=== PATIENT | female | born 1945 | race Caucasian/White ===

== ENCOUNTER 2016-07-27 18:17 | Emergency (ER) | payer MEDICARE, BC ==
[2016-07-27 18:56] VITALS: BP 175/91
--- NOTE | 2016-07-27 19:39 | UC ---
Skin Complaint HPI - HPI Summary HPI Summary: The patient comes in today for: 1. Bruise lesion: Onset: Yesterday. Palliative/provocative: Worse with pressure. Quality: Itching and an ache. Region: Behind the right knee and calf. Severity: 3/10 with no touch. With touching 8/10 Time: Constant. Associated symptoms: Event: Last night, she felt like something had bitten her behind the right knee. When she got home, she notice what looked like a bruise. It got worse during today while she was up. * - History of Current Complaint Chief Complaint: UCSkin Time Seen by Provider: 07/27/16 19:30 Stated Complaint: ITCHINESS AND BRUISING ON LEG Hx Obtained From: Patient - Allergy/Home Medications Allergies/Adverse Reactions: Allergies Allergy/AdvReac Type Severity Reaction Status Date / Time Iodinated Contrast Media Allergy Unknown Hives Verified 07/05/15 16:14 [IV CONTRAST DYE] Erythromycin Allergy GI Upset Verified 07/05/15 16:14 Iodine Allergy Hives Verified 07/05/15 16:14 Latex Allergy REDNESS, Verified 07/05/15 16:14 IRRITATION Metoclopramide [From Reglan] Allergy Anxiety Verified 07/05/15 16:14 Morphine Allergy Nausea Verified 07/05/15 16:14 Opioid Analgesics Allergy Nausea And Verified 07/05/15 16:14 Vomiting Penicillins [PCN] Allergy Hives Verified 07/05/15 16:14 Sulfacetamide Allergy Hives Verified 07/05/15 16:14 Sulfamethoxazole Allergy Nausea Verified 07/05/15 16:14 w/Trimethoprim [From Bactrim] Tramadol Allergy unk Verified 07/05/15 16:14 BANDAID Allergy REDNESS, Uncoded 07/05/15 16:14 LATEX Home Medications: Home Medications Atorvastatin* [Lipitor 40 MG*] 07/27/16 [History] Review of Systems Constitutional: Negative Skin: Rash Eyes: Negative ENT: Negative Respiratory: Negative Cardiovascular: Negative Gastrointestinal: Negative Genitourinary: Negative All Other Systems Reviewed And Are Negative: Yes PMH/Surg Hx/FS Hx/Imm Hx Previously Healthy: No - Reflex sympathetic dystrophy, constipation Endocrine History Of: Reports: Thyroid Disease - Hyperparathyroidism, Hyperthyroidism, Dyslipidemia Denies: Diabetes, Hypothyroidism Cardiovascular History Of: Reports: Hypertension - CONTROL WITH MEDS Denies: Pacemaker/ICD, Congestive Heart Failure Respiratory History Of: Reports: COPD, Asthma - INHALERS, Bronchitis - HX OF Denies: Pneumonia, Pulmonary Embolism GI/ History Of: Reports: Gastroesophageal Reflux Denies: Ulcer, Gastrointestinal Bleed, Gall Bladder Disease, Kidney Stones, Diverticulitis, Renal Disease, Urosepsis Neurological History Of: Denies: TIA, CVA, Dementia, Seizures, Migraine Psychological History Of: Reports: Anxiety, Depression Denies: Bipolar Disorder, Schizophrenia, Post Traumatic Stress Disorder Cancer History Of: Denies: Lung Cancer, Colorectal Cancer, Breast Cancer, Prostate Cancer, Cervical Cancer Other History Of: Negative For: HIV, Hepatitis B, Hepatitis C, Anticoagulant Therapy - Surgical History Surgical History: Yes Surgery Procedure, Year, and Place: 1995 RIGHT CARPAL TUNNEL, ULNAR NERVE SURGERY, [facility]. 1997 PARATHYROIDECTOMY, [place]. 1989 SINUS SURGERIES, [place]. 2010 LEFT FOOT SURGERY TO REMOVE MOLE ON SECOND TOE, [facility] - Family History Known Family History: Positive: Cardiac Disease, Hypertension - Social History Occupation: Unemployed Alcohol Use: None Substance Use Type: None Smoking Status (MU): Former Smoker Type: Cigarettes Amount Used/How Often: 1/2 pack/day Length of Time of Smoking/Using Tobacco: 21 years Have You Smoked in the Last Year: No When Did the Patient Quit Smoking/Using Tobacco: 04/07/90 - Immunization History Most Recent Influenza Vaccination: 2011 Most Recent Tetanus Shot: 2010 Physical Exam Triage Information Reviewed: Yes Appearance: Well-Appearing, No Pain Distress, Well-Nourished Vital Signs: Initial Vital Signs Temp 100.2 F 07/27/16 18:45 Pulse 87 07/27/16 18:45 Resp 18 07/27/16 18:45 BP 175/91 07/27/16 18:45 Pulse Ox 97 07/27/16 18:45 Vital Signs Reviewed: Yes Eyes: Positive: Conjunctiva Clear. Negative: Discharge ENT: Positive: Hearing grossly normal. Negative: Pharyngeal erythema, Nasal congestion, Nasal drainage, TM bulging, TM dull, TM red, Tonsillar swelling, Tonsillar exudate Dental: Negative: Gross Decay/Caries @, Dental Fracture @ Neck: Positive: Supple, Nontender, No Lymphadenopathy. Negative: Nuchal Rigidity Respiratory: Positive: Chest non-tender, Lungs clear, No respiratory distress, No accessory muscle use. Negative: Crackles, Wheezing Cardiovascular: Positive: RRR, No Murmur Abdomen Description: Positive: Nontender, No Organomegaly, Soft. Negative: Distended, Guarding Musculoskeletal: Positive: Strength Intact, ROM Intact, No Edema, Other: - Right leg: There was a firm area and then ecchymosis of the right calf skin. There was no marked tenderness, skin edema or edema. There were superficial varicose veins of both legs. None were ropy, but still easily seen and palpated. No superficial thrombophlebitis. Neurological: Positive: Alert, Muscle Tone Normal Psychological: Negative: Age Appropriate Behavior, Consolable Skin: Negative: rashes, breakdown Course/Dx - Course Course Of Treatment: Patient was told that I think she had a spontaneous rupture of one of her superficial varicose veins. And her enlarging bruise area is consistent with its natural progresss. - Diagnoses Provider Diagnoses: Superficial varicose veins with spontaneous rupture of behind the right calf. Discharge - Discharge Plan Condition: Stable Disposition: HOME Patient Education Materials: Varicose Veins (ED) Referrals: Noah Maldonado MD [Primary Care Provider] - 1 Week (Please see your primary care provider next week to see how well you are doing. If you don't have a primary care provider, please contact the physician referral service. If you can't get in timely, please you may come back to see us until you can. If you get worse, please be seen sooner by us or the ER.) Additional Instructions: Please keep the right leg elevated, apply cold compresses for 20 minutes at a time for 4-5 times a day for the first two days. Thereafter use warm compresses for 20 minutes 4-5 times a day as needed for comfort and to speed healing. Take [id number] pain medications as needed for pain control. Keep elevated as much as you can.
== END 2016-07-27 20:20 | disposition home or self-care (01) ==
LOC: UCEAST 18:17
DX: I83.891 Varicose veins of right lower extremity with other complications (principal); E21.3 Hyperparathyroidism, unspecified; E78.5 Hyperlipidemia, unspecified; J44.9 Chronic obstructive pulmonary disease, unspecified; K21.9 Gastro-esophageal reflux disease without esophagitis; F41.9 Anxiety disorder, unspecified; F32.9 Major depressive disorder, single episode, unspecified; E05.90 Thyrotoxicosis, unspecified without thyrotoxic crisis or storm; Z88.0 Allergy status to penicillin; Z88.2 Allergy status to sulfonamides; Z88.3 Allergy status to other anti-infective agents; Z91.040 Latex allergy status; Z88.5 Allergy status to narcotic agent; Z91.041 Radiographic dye allergy status; Z87.891 Personal history of nicotine dependence
CPT/HCPCS: 99212; G0463

== ENCOUNTER 2016-10-10 10:02 | Day surgery (SDC) | payer MEDICARE, BC ==
[~2016-10-10 10:02] MED LIST: Dexamethasone IV* 4 MG/ML 1 ML (4 MG) IV SLOW PU ONE; Famotidine IV* 10 MG/ML 2 ML (20 mg) IV ONE
[2016-10-10] MEDS ORDERED: Buffered Lidocaine 0.9% SYRIN* 5 ML/SYR SYRINGE ONE (10:14)
[2016-10-10] MEDS ORDERED: Dexamethasone IV* 4 MG/ML 1 ML (4 MG) ONE (10:14)
[2016-10-10] MEDS ORDERED: Clindamycin 900 MG IVPREMIX(* 900 MG/50 ML SDV IV ONE (10:14)
[2016-10-10] MEDS ORDERED: Famotidine IV* 10 MG/ML 2 ML (20 mg) ONE ×2 (10:14→10:15)
[2016-10-10] MEDS: Buffered Lidocaine 0.9% SYRIN* 5 ML/SYR SYRINGE INTRADERM ONE ×2 (10:21→11:13)
[2016-10-10] MEDS ORDERED: Midazolam* 1 MG/ML 5 ML VIAL (5 MG) ONE (11:57)
[2016-10-10] MEDS ORDERED: fentaNYL* 50 MCG/ML 2 ML VIAL (100 MCG VIAL) ONE (11:57)
[2016-10-10] MEDS ORDERED: Lidocain 1% EPI 1:100,000 * 30 ML MDV ONE (12:20)
[2016-10-10] MEDS ORDERED: Bacitracin OINTMENT* 1 TUBE ONE (12:20)
[2016-10-10] MEDS ORDERED: Methylene Blue 0.5 %* 50 MG/10 ML AMP IV ONE (12:20)
[2016-10-10] MEDS ORDERED: Propofol* 10 MG/ML 20 ML BTL IV PUSH ONE (12:38)
[2016-10-10] MEDS ORDERED: Ondansetron INJ* 2 MG/ML VIAL ONE (12:38)
[2016-10-10 13:31] VITALS: BP 117/51
[2016-10-10] MEDS ORDERED: BSS OPTH.SOL* BTL ONE (15:00)
== END 2016-10-10 13:59 | disposition home or self-care (01) ==
LOC: OREAST 10:02
PROVIDERS: ATTEND Plastic Surgery
DX: L57.0 Actinic keratosis (principal); I10 Essential (primary) hypertension; G47.33 Obstructive sleep apnea (adult) (pediatric); J45.909 Unspecified asthma, uncomplicated
CPT/HCPCS: 88305; A9270-GY; J1100; J2250; J2405; J2704; J3010

== ENCOUNTER 2017-08-17 17:45 | Emergency (ER) | payer MEDICARE, BC ==
--- OUTSIDE RECORDS SUMMARY | 2017-08-17 17:51 | XMS REPORT ---
:1945 External Reference #:[id number] Author Organization [facility] Address [address] [place] [address] Phone [phone] Care Team Providers Name Role Phone Noah Maldonado M.D. Care Team Information Regional Economist Unavailable Noah Maldonado M.D. Primary Care Physician Unavailable Payers Type Date Identification Numbers Payment Provider Subscriber Medicare Primary Policy Number: [id number] [place] [employer] Kat Couch [facility] PayID: [id number] [address] [place] [address] Medigap Part B Effective: Policy Number: Awais Hammer 2010 [id number] [facility] Expires: 2016 Group Number: [id number] [address] [address] PayID: [id number] [place] [address] Medigap Part B Policy Number: [id number] [facility] Lacie Couch [facility] PayID: [id number] [address] [address] [place] [address] Problems Date Description Provider Status Onset: 01/11/2009 Essential hypertension Tobi Rico MD Active Family History Date Family Member(s) Problem(s) Comments General Asthma General Cancer General Diabetes Social History Type Date Description Comments Occupation Retired Cigarette Use Former Cigarette Smoker Packs Daily 1 for 12 years Cigars Never Smoked Cigars Pipe Never Smoked A Pipe Smokeless Tobacco Never Used Smokeless Tobacco ETOH Use Denies alcohol use Smoking Patient is a former smoker Allergies, Adverse Reactions, Alerts Date Description Reaction Status Severity Comments 02/29/2004 Penicillin active 02/29/2004 Sulfa active 01/11/2009 Contrast Dye hives active 01/11/2009 Bactrim active 01/11/2009 Erythromycin active 01/11/2009 Morphine active 02/21/2011 Opioid Analgesics active 02/21/2011 Tramadol active 02/21/2011 Iodine active 12/04/2012 Reglan active 07/22/2017 Doxy active Medications Medication Date Status Form Strength Qnty SIG Indications Ordering Provider Omeprazole 07/[address] 20mg 30cap 1 tab by Tobi s mouth 30 min Jeet Rico, before dinner Amlodipine Active 5mg 1 po qd Skezas, Noah Munguia Caltrate 600+D Active 1 po bid Skezas, Noah Munguia Gabapentin Active 800mg 1 po tid Skezsultana, Noah Munguia Tudorza Active 400mcg 1 puff bid Joel, Pressair Noah Munguia Dexilant Active Capsules DR 60mg take 1 Unknown capsule by mouth once daily Advair HFA Active Aerosol 230-21mcg Unknown / /Act Hyoscyamine Active Tablets ER 0.375mg Unknown Sulfate ER / 12HR Montelukast Active Tablets 10mg qd Skashleyas, Sodium Noah Munguia Valsartan Active Tablets 160mg 1 po qd Skezas, Noah Munguia Atorvastatin Active Tablets 40mg 1 po qd Chiquisas, Calcium Noah Munguia Ciclesonide Active 50mcg/Act 2 sprays per Skez nostril qd Noah Munguia Cyanocobalamin Active Solution 1000mcg 1 po qd Skezas, Noah Munguia Lubiprostone Active 24mcg 1 po bid Skezsultana, Noah Munguia Zoloft Active Tablets 50mg 1 by mouth Skezas, every day Noah Munguia Albuterol HFA Active Aerosol 90mcg/Act 2 puffs Skezas, every 2 to 4 Noah hours as M.DLuis Enrique needed for wheezing Albuterol Active Nebulizer (2.5mg/3M use in Skezas, Sulfate / L) 0.083% nebulizer Noah every 4 M.D. hours as needed for wheezing Amitiza Active Capsules 24mcg Unknown Azithromycin Active Tablets 500mg Take 1 Unknown Tablet By Mouth Three Times A Week Ipratropium Active Solution 0.03% Instill 2 Unknown Sprays Into Each Nostril Twice A Day Miralax Active Powder twice daily Unknown Cefdinir 03/23 Hx Capsules 300mg 28cap 1 by mouth Jay Segura /Diomedes s twice a day Ruperto carrillo M.D. 04/08 Levaquin 03/17 Hx Tablets 500mg 14tab 1 po qd 473.0 Jay Segura /2011 s Ruperto carrillo M.D. 04/08 Nasonex 02/24 Hx Suspension 50mcg/Act 1-2 sprays Jya Segura /2011 s intranasal Strominge - bid r MEugene 08/11 Saline Flush 01/28 Hx Solution 0.9% 3unit use with Jay Segura /2011 kendy bactroban Strominge - irrigations r M.DLuis Enrique 12/04 1000cc /2012 Bactroban 01/27 Hx Cream 2% 15gm mix 1/3 tube 473.2 Jay Segura in liter ns Strominge - irrigate Nilda carrillo 12/04 nostrils bid Mycelex 10/02 Hx Trouches 10mg 50uni 1 dissolve 112.0 Jay Wilson /2011 ts in mouth 5 Strominge - times a day r, M.DLuis Enrique 01/27 Nebulizer 10/02 Hx use as 112.0 Jay Segura /2011 directed Ruperto carrillo M.D. 08/12 Xopenex 10/02 Hx Nebulizer 1.25mg/3M 60uni use with 496 Jay Segura /2011 L ts nebulizer 3x Strominge - daily at 6-8 r, M.D. interval Bactroban 01/30 Hx Cream 2% 30gm mix 1/3 tube in liter ns Clemencia Connelly MD 02/21 nostrils twice a day with 50 ml Saline 10/26 Hx Solution 0.9% 3Lite mix with rs bactroban as Jeet Rico, - directed 12/04 Clotrimazole 02/22 Hx Gayle 10mg 50uni 1 by mouth 5 ts times a day Jeet Rico, - for 10 days 02/21 Meclizine HCL 05/17 Hx Tablets 25mg 30tab 1 po tid as Jay Segura s needed for Strominge - dizziness Nilda carrillo 02/21 Bactroban 05/16 Hx Cream 2% 3unit mix 04/09 tube 461.0 Jay Segura s in liter ns Strominge - irrigate Nilda carrillo 07/13 nostrils bid Saline Flush 05/16 Hx Solution 0.9% 3unit use with 461.0 Jay Segura s bactroban Lillyinge - irrigations Nilda carrillo 02/21 1000cc 15 gms Levaquin 05/16 Hx Tablets 500mg 14tab 1 po qd Jay Imelda s Ruperto - Nilda carrillo 07/13 Prednisone 04/14 Hx Tablets 10mg 10tab use as Jay Segura s directed Ruperto carrillo M.D. 07/13 Levaquin 04/10 Hx Tablets 750mg 7Days 1 po qd 461.0 Jay Stevie Lillyinge - Nilda carrillo 07/13 Prednisone 04/10 Hx Tablets 10mg 30tab 4 tabs po 461.0 Jay Segura s every day x4 Strominge - d, then 3 Nilda carrillo 07/13 tabs po every day x 4d, then 2 tab po daily x4d, then 1 tab po daily x4d Benadryl 04/10 Hx Capsules 25mg use as 461.0 Jay Segura directed on Strominge - the box can Nilda carrillo 07/13 take mg Aspirin Hx Unknown /0000 - 08/11 Astelin Hx Unknown /0000 - 02/21 Calcitonin 00 Hx Unknown /0000 - 07/13 Unit/Act Nasal Hx Unknown Solution /0000 - 07/13 Calcium 00/00 Hx Unknown Carbonate /08/11 Clonidine HCL 00/00 Hx Unknown /12/04 Clarinex 00/00 Hx Unknown /01/27 Nexium 00/00 Hx Unknown /08/12 Zetia 00/00 Hx Unknown /12/04 Mucinex 00/00 Hx Unknown /02/21 Nasonex 00/00 Hx Unknown /02/21 Singulair 00/00 Hx Unknown /08/11 Miralax 00/00 Hx 17Grams prn Skfinesse, / Noah - MEugene 07/22 Actonel 00/00 Hx Unknown 08/12 Nasal Saline 00/00 Hx Unknown /02/21 Advair HFA 00/00 Hx Unknown 230/ /08/11 Zocor 00/00 Hx Unknown /02/21 Diovan 00/00 Hx Unknown /08/11 Effexor 00/00 Hx Unknown /08/11 Ventolin HFA 00/00 Hx Unknown /08/11 Ipratropium 00/00 Hx Unknown [place] /02/21 Doxycycline 00/00 Hx Unknown 02/21 Calcitonin-Salm 00/00 Hx Solution 200Unit/A Unknown on 01/27 Guaifenesin 00/00 Hx Unknown /12/04 Hyoscyamine 00/00 Hx Tablets ER 0.375mg Unknown Sulfate /0000 - 07/22 Ipratropium 00/00 Hx Unknown [place] /10/02 Zocor 00/00 Hx Tablets 40mg Unknown /08/11 Spiriva 00/00 Hx Capsules 18mcg 30cap 1 cap Unknown Handihaler /0000 s inhaled qday - 12/04 Tobramycin 00/00 Hx Unknown Sulfate /12/04 Mycelex 00/00 Hx Unknown Trouches /08/11 Vitamin B12 00/00 Hx Unknown /08/11 Doxycycline 00/00 Hx Unknown /02/01 Albuterol HFA / Hx - 08/11 Clonidine HCL / Hx - 08/11 Atrovent Hx - 08/11 Amitiza Hx Capsules 24mcg - 08/11 Benzonatate Hx Capsules 100mg take 1 Unknown capsule by - mouth three 07/22 times a day if needed cough Moxifloxacin Hx Tablets 400mg take 1 Unknown HCL tablet by - mouth once 07/22 daily /2017 Sertraline HCL Hx Tablets 25mg - 07/22 Hycosamine Hx 0.375mg 1 po bid Joel Noah Khanna MEugene 07/22 Vital Signs Date Vital Result Comment 07/22/2017 Weight 175.00 lb Weight in kg's 79.380 Height 62.01 inches 5'2.01" Height in cm's 157.5 cm BMI (Body Mass Index) 32.0 kg/m2 08/12/2016 BP Systolic 170 mmHg BP Diastolic 94 mmHg Heart Rate 87 /min Respiratory Rate 17 /min Weight 150.00 lb Weight in kg's 68.040 Height 62.01 inches 5'2.01" Height in cm's 157.5 cm BMI (Body Mass Index) 27.4 kg/m2 01/25/2016 BP Systolic 118 mmHg BP Diastolic 61 mmHg Heart Rate 80 /min Respiratory Rate 17 /min Weight 151.00 lb Weight in kg's 68.494 Height 62.01 inches 5'2.01" Height in cm's 157.5 cm BMI (Body Mass Index) 27.6 kg/m2 02/01/2013 BP Systolic 141 mmHg BP Diastolic 77 mmHg Heart Rate 86 /min Respiratory Rate 17 /min Weight 215.00 lb Weight in kg's 97.524 Height 62.01 inches 5'2.01" Height in cm's 157.5 cm BMI (Body Mass Index) 39.3 kg/m2 12/04/2012 BP Systolic 143 mmHg BP Diastolic 75 mmHg Heart Rate 86 /min Respiratory Rate 16 /min Weight 215.00 lb Weight in kg's 97.524 Height 62.01 inches 5'2.01" Height in cm's 157.5 cm BMI (Body Mass Index) 39.3 kg/m2 01/28/2012 BP Systolic 119 mmHg BP Diastolic 80 mmHg Heart Rate 83 /min Respiratory Rate 16 /min Weight 215.00 lb Weight in kg's 97.524 Height 62.01 inches 5'2" Height in cm's 157.5 cm BMI (Body Mass Index) 39.3 kg/m2 10/28/2011 BP Systolic 109 mmHg BP Diastolic 67 mmHg Heart Rate 90 /min Respiratory Rate 16 /min Weight 209.00 lb Weight in kg's 94.802 Height 63 inches 5'3" Height in cm's 160.0 cm BMI (Body Mass Index) 37.0 kg/m2 02/21/2011 BP Systolic 143 mmHg BP Diastolic 77 mmHg Heart Rate 84 /min Respiratory Rate 16 /min Weight 208.00 lb Weight in kg's 94.349 Height 63 inches 5'3" Height in cm's 160.0 cm BMI (Body Mass Index) 36.8 kg/m2 01/24/2011 BP Systolic 146 mmHg BP Diastolic 79 mmHg Heart Rate 83 /min Respiratory Rate 16 /min Weight 208.00 lb Weight in kg's 94.349 Height 63 inches 5'3" Height in cm's 160.0 cm BMI (Body Mass Index) 36.8 kg/m2 01/11/2009 BP Systolic 150 mmHg BP Diastolic 89 mmHg Heart Rate 95 /min Respiratory Rate 16 /min Results Test Date Test Result H/L Range Note Laboratory test 03/17/2012 Culture Sensitivity <pending> finding Wound Culture/Sensi 03/17/2012 Wound/Misc (SEE NOTE) 1 Culture-Gram Stain Culture And 01/24/2011 Gram Stain Smear FEW EPITHELIAL C 2 Sensitivity/ Gram <SEE NOTE> Stain Laboratory test 01/24/2011 Culture NG4 3 finding Sensitivity Laboratory test 05/16/2009 Anaerobic Culture NOANA4 4, 5 finding Culture Sensitivity BETA STREP GROUP <SEE NOTE> 4, 6 CS-1 05/16/2009 Ampicillin <=0.06 4 Azithromycin >2 4 Chloramphenicol 4 4 Ceftriaxone <=0.25 4 Clindamycin <=0.06 4 Cefotaxime <=0.25 4 Cefepime <=0.25 4 Erythromycin >0.5 4 Levofloxacin 0.5 4 Penicillin <=0.03 4 Tetracylcline >4 4 Vancomycin 0.5 4 Laboratory test 04/10/2009 Culture Sensitivity HAEMOPHILUS INFL 7, 8 finding <SEE NOTE> 1 RUN DATE: 03/23/12 [facility] LIVE PAGE 1 RUN TIME: [address] [place] [address] Specimen Inquiry Name: KAT COUCH : [address]: Tiffanie Albarran NP Acct: [id number] Unit: [id number] AGE: 66 Location: [facility] Re03/17/12 SEX: F Status: REG REF SPEC: [id number] ANY: 03/17/12-[address] [facility] [address]: Tiffanie Albarran NP REQ: [id number] RECD: 03/18/12 STATUS: COMP _ SOURCE: MISC SOURC SPDESC:OTHER ORDERED: Culture Stain COMMENTS: SPECIMEN SOURCE: LEFT MIDDLE MEATUS QUERIES: Medent Number [id number] Procedure Result Verified Site Wound/Misc Gram Stain Final 03/18/12- 1546 ML No Polys Observed No Organisms Seen Wound/Misc Culture Final 03/23/12- 1434 ML Organism 1 STREPTOCOCCUS PARASANGUINIS Quantity 1+ Organism 2 STAPHYLOCOCCUS EPIDERMIDIS Quantity 1+ 1. STREPTOCOCCUS PARASANGUINIS M.I.C. RX --------- ------ * Chloramphenicol 4 S Ampicillin 2 I Penicillin I * Meropenem 0.5 S Cefepime 1 S Cefotaxime 1 S Ceftriaxone 1 S Levofloxacin >4 R Azithromycin >2 R Clindamycin <=0.06 S Erythromycin >0.5 R Tetracycline 4 I Vancomycin 0.5 S CONTINUED ON NEXT PAGE * ML=Testing performed at Main Lab DEPARTMENT OF PATHOLOGY, [facility] [employer] [place], [place] [address] Jeff Nugent M.D. Director [facility] Permit #[id number] RUN DATE: 03/23/12 [facility] LIVE PAGE 2 RUN TIME: 9470 [facility] [employer] [place], [place] [address] Specimen Inquiry Patient: KAT COUCH [id number] (Continued) Specimen: [id number] Collected: 03/17/12160 Received: 03/18/12 (Continued) Procedure Result Verified Site Wound/Misc Culture Final (continued) 03/23/12- 143 2. STAPHYLOCOCCUS EPIDERMIDIS M.I.C. RX --------- ------ Penicillin >=0.5 R Ciprofloxacin 4 R Clindamycin >=8 R Erythromycin >=8 R Gentamicin <=0.5 S Levofloxacin 4 I Linezolid 1 S * Moxifloxacin 1 S Nitrofurantoin <=16 S Oxacillin >=4 R * Quinupristin/Dalfopristin <=0.25 S Rifampin <=0.5 S Tetracycline <=1 S Doxycycline - Deduced S * Minocycline - Deduced S Tigecycline <=0.12 S Vancomycin 2 S Imipenem-Deduced R Ampicillin/Sulbactam-Deduced R Cefazolin-Deduced R * These antibiotics are not available in the [facility] Formulary Contact the Microbiology Department for any additional antibiotic reporting. END OF REPORT * ML=Testing performed at Main Lab DEPARTMENT OF PATHOLOGY, [address] [place] [address] Jeff Nugent M.D. Director [facility] Permit #[id number] 2 FEW EPITHELIAL CELLS NO ORGANISMS SEEN FEW 3 FINAL: NO GROWTH DAY 4 4 RIGHT MIDDLE MEATUS PUS POCKET IN RIGHT MIDDLE MEATUS 5 FINAL: NO GROWTH OF ANAEROBES DAY 4 6 BETA STREP GROUP C M^MANY^QTY 7 RIGHT MAXILLARY SINUS 8 HAEMOPHILUS INFLUENZAE F^FEW^QTY NORMAL ABDELRAHMAN F^FEW^QTY Procedures Date CPT Code Description Status 07/22/2017 79304 Nasal Endoscopy, Diagnostic Completed 02/01/2013 23054 Tympanometry Completed 12/04/2012 90825 Nasal Endoscopy, Diagnostic Completed 03/17/2012 82017 Nasal Endoscopy, Diagnostic Completed 01/28/2012 54030 Nasal Endoscopy, Diagnostic Completed 01/24/2011 06913 Nasal Endoscopy, Diagnostic Completed 08/09/2009 78513 Tympanometry Completed 06/08/2009 64901 Nasal Endoscopy, Diagnostic Completed 05/16/2009 65639 Tympanometry Completed 05/16/2009 22636 Comprehensive Audiogram Completed 05/16/2009 63663 Nasal Endoscopy, Diagnostic Completed 05/01/2009 98472 Tympanometry Completed 05/01/2009 17505 Nasal Endoscopy, Diagnostic Completed 04/10/2009 62630 Nasal Endoscopy, Diagnostic Completed 01/11/2009 93836 Nasal Endoscopy, Diagnostic Completed 02/29/2004 84700 Fiberoptic Laryngoscopy Completed Encounters Type Date Location Provider CPT E/M Dx Office Visit 07/22/2017 10:45a [place],[facility] 04/07/07 [place] [address] R05 R07.0 J32.9 Office Visit 08/12/2016 1:45p [place],After 04/07/07 Jay Boyle, 34169 H92.02 Nilda M26.602 Office Visit 01/25/2016 2:15p [place],After 04/07/07 [place] [address] K11.20 H92.02 Office Visit 02/01/2013 11:30a [place],After 04/07/07 Uluyen Tiffanie [employer]IE[employer] 42068 381.81 Office Visit 12/04/2012 10:00a [place],After 04/07/07 [place] [address] 477.8 784.0 472.0 386.11 Office Visit 04/08/2012 9:30a [place],After 04/07/07 Uluyen Tiffanie [employer]IE[employer] 15888 477.8 380.4 Office Visit 03/17/2012 3:00p [place],After 04/07/07 Ulich, Tiffanie DESIGN [employer] CHIEF 09019 473.0 784.91 Office Visit 02/18/2012 10:30a [place],After 04/07/07 Uldrich, Tiffanie DES[employer] CHIEF 74630 473.0 477.8 Office Visit 01/28/2012 9:30a [place],After 04/07/07 Uldrich, Tiffanie DES[employer] CHIEF 25199 784.0 473.2 Office Visit 10/28/2011 10:45a [place],After 04/07/07 Uldrich, Tiffanie [employer] CHIEF 75439 112.0 496 Office Visit 10/03/2011 1:45p [place],After 04/07/07 Uldrich, Tiffanie DESIGN D[employer]TER CHIEF 82502 112.0 496 380.4 Office Visit 02/21/2011 9:30a [place],After 04/07/07 [place] [address] 784.91 477.8 Office Visit 01/24/2011 11:30a [place],After 04/07/07 [place] [address] 473.0 Office Visit 02/22/2010 2:15p [place],After 04/07/07 [place] [address] 472.0 527.7 401.9 Office Visit 08/09/2009 9:45a [place],After 04/07/07 [place] [address] 401.9 381.81 477.8 Office Visit 07/13/2009 9:00a [place],After 04/07/07 [place] [address] 472.0 473.2 473.0 401.9 Office Visit 06/21/2009 10:45a [place],After 04/07/07 [place] [address] 466.0 401.9 Office Visit 05/16/2009 2:00p [place],After 04/07/07 Tiffanie Albarran [employer]IEF 45000 461.0 386.11 Office Visit 05/01/2009 3:00p [place],After 04/07/07 Tiffanie Albarran [employer] 48042 381.81 461.0 471.8 401.9 Office Visit 04/10/2009 10:00a [place],After 04/07/07 Tiffanie Albarran [employer]IEF 15386 461.0 471.8 401.9 Office Visit 02/08/2009 10:15a [place],After 04/07/07 [place] [address] 472.0 401.9 477.8 210.4 Office Visit 01/11/2009 9:30a [place],After 04/07/07 [place] [address] 472.0 477.8 401.9 Office Visit 02/29/2004 4:15p [place],After 04/07/07 Jay Boyle, 72744 530.81 M.D. 478.75 Plan of Care 07/22/2017 - Tobi Rico, MDR05 CoughNew Xrays:Chest X-ray PA & FzlcgntI58.0 Pain in fgbpgkO43.9 Chronic sinusitis, unspecified
[2017-08-17 17:59] VITALS: BP 140/77
--- NOTE | 2017-08-17 18:20 | UC ---
Laceration HPI - HPI Summary HPI Summary: States she lacerated skin of left calf while opening car door about 90 min ago. States last tetanus shot in 2010 - History Of Current Complaint Chief Complaint: UCLaceration Stated Complaint: LACERATION L LEG Time Seen by Provider: 08/17/17 17:57 Hx Obtained From: Patient Hx Last Menstrual Period: post Laceration Location: Calf Mechanism Of Injury: Sharp Trauma Onset/Duration: Sudden Onset, Lasting Hours Severity: Moderate Pain Intensity: 4 Aggravating Factors: Nothing - Allergies/Home Medications Allergies/Adverse Reactions: Allergies Allergy/AdvReac Type Severity Reaction Status Date / Time doxycycline Allergy Intermediate Nausea Verified 08/17/17 18:09 erythromycin base Allergy Intermediate GI Upset Verified 08/17/17 18:09 iodine Allergy Intermediate Hives Verified 08/17/17 18:09 latex Allergy Intermediate redness Verified 08/17/17 18:09 metoclopramide [From Reglan] Allergy Intermediate Anxiety Verified 08/17/17 18: 09 Opioids - Morphine Analogues Allergy Intermediate n/v Verified 08/17/17 18:09 Sulfa (Sulfonamide Allergy Intermediate Hives Verified 08/17/17 18:09 Antibiotics) morphine Allergy Nausea Verified 08/17/17 18:09 Penicillins Allergy Hives Verified 08/17/17 18:09 tramadol Allergy Nausea Verified 08/17/17 18:09 contrast dye Allergy Intermediate Hives Uncoded 08/17/17 18:09 BANDAID Allergy REDNESS, Uncoded 08/17/17 18:09 LATEX Home Medications: Home Medications Rabisacodyl Ec 10 mg PO BEDTIME 08/17/17 [History Confirmed 08/17/17] PMH/Surg Hx/FS Hx/Imm Hx Previously Healthy: Yes Endocrine History: Hypothyroidism Respiratory History: Asthma GI/ History: Gastroesophageal Reflux Psychological History: Depression Other History Of: Negative For: HIV, Hepatitis B, Hepatitis C, Anticoagulant Therapy - Surgical History Surgical History: Yes Surgery Procedure, Year, and Place: 1995 RIGHT CARPAL TUNNEL, ULNAR NERVE SURGERY, [facility]. 1997 PARATHYROIDECTOMY, [facility]. 1989 SINUS SURGERIES, [facility]. 2010 LEFT FOOT SURGERY TO REMOVE MOLE ON SECOND TOE, [facility]. bilateral cataract extraction with IOL - 2012 [facility] [place] - Family History Known Family History: Positive: Cardiac Disease, Hypertension - Social History Alcohol Use: None Substance Use Type: None Smoking Status (MU): Former Smoker Type: Cigarettes Amount Used/How Often: 1/2 pack/day Length of Time of Smoking/Using Tobacco: 21 years Have You Smoked in the Last Year: No When Did the Patient Quit Smoking/Using Tobacco: 04/07/90 - Immunization History Most Recent Influenza Vaccination: 2011 Most Recent Tetanus Shot: 2010 Review of Systems Constitutional: Negative All Other Systems Reviewed And Are Negative: Yes Physical Exam Triage Information Reviewed: Yes Appearance: Well-Appearing, No Pain Distress, Well-Nourished Vital Signs: Initial Vital Signs Temp 99.3 F 08/17/17 17:51 Pulse 94 08/17/17 17:51 Resp 16 08/17/17 17:51 BP 140/77 08/17/17 17:51 Pulse Ox 99 08/17/17 17:51 Vital Signs Reviewed: Yes Eyes: Positive: Conjunctiva Clear ENT: Positive: Hearing grossly normal Neck: Positive: Supple Respiratory: Positive: No respiratory distress Cardiovascular: Positive: Pulses Normal, Brisk Capillary Refill Musculoskeletal: Positive: Strength Intact, ROM Intact, No Edema Skin Exam: Other - superficial "V" shaped laceration of skin anterior mid left calf pointing medially with scant bleeding and diffuse bruising surrounding it. Laceration Repair - Laceration Repair 1 Description: Linear Laceration Size After Repair: Length (cm) - "v" shaped, 1.7cm inferior side x 2 cm superior side Modified For Repair: No Type Injection: Local Anesthesia Used: 1.0% Lido Cleansing Completed Via Routine Prep: Yes Irrigation With Pressure Irrigation Device: No Closure Material: Sutures Closure Method: Single Layer Suture Of: Skin Suture Type: Prolene Laceration Course/Dx - Course/Dx Course Of Treatment: Laceration repaired with sutures. Patient tolerated procedure well. Return for wound inspection and suture removal in 7 days. Tylenol as needed. F/u with PCP in 2 weeks - Differential Dx - Laceration/Wound Provider Diagnoses: Laceration left calf. HTN Discharge - Sign-Out/Discharge Documenting (check all that apply): Discharge/Admit/Transfer - Discharge Plan Condition: Good Disposition: HOME Patient Education Materials: Laceration (ED), Care For Your Stitches (ED) Referrals: Noah Maldonado MD [Primary Care Provider] - - Billing Disposition and Condition Condition: GOOD Disposition: HOME Images Front/Back of Body, Lg ([place]): 1 - "V" shaped laceration 1.5cm in length on each side
[2017-08-17] MEDS ORDERED: Lidocaine 2% PF * 5 ML VIAL INJ ONE (18:24)
== END 2017-08-17 19:10 | disposition home or self-care (01) ==
LOC: UCEAST 17:45
DX: S81.812A Laceration without foreign body, left lower leg, initial encounter (principal); W22.8XXA Striking against or struck by other objects, initial encounter; Y93.89 Activity, other specified; Y92.9 Unspecified place or not applicable; I10 Essential (primary) hypertension; E03.9 Hypothyroidism, unspecified; J45.909 Unspecified asthma, uncomplicated; K21.9 Gastro-esophageal reflux disease without esophagitis; F32.9 Major depressive disorder, single episode, unspecified; Z88.1 Allergy status to other antibiotic agents; Z91.041 Radiographic dye allergy status; Z91.040 Latex allergy status; Z88.5 Allergy status to narcotic agent; Z88.0 Allergy status to penicillin; Z88.2 Allergy status to sulfonamides; Z91.048 Other nonmedicinal substance allergy status; Z87.891 Personal history of nicotine dependence
CPT/HCPCS: 12001; 99212; G0463

== ENCOUNTER 2017-08-25 13:50 | Emergency (ER) | payer MEDICARE, BC ==
[2017-08-25 13:59] VITALS: BP 144/71
--- OUTSIDE RECORDS SUMMARY | 2017-08-25 13:59 | XMS REPORT ---
:1945 External Reference #:[id number] Author Organization [facility] [employer] Address [address] [place] [address] Phone [phone] Care Team Providers Name Role Phone Noah Maldonado M.D. Primary Care Physician Unavailable Payers Type Date Identification Numbers Payment Provider Subscriber Medicare Primary Effective: Policy Number: Medicare - NGS Kat Bunn 2001 [id number] Vinh PayID: [id number] [address] [place] [address] Medigap Part B Policy Number: [id number] BS [place] Jackie Sloanard PayID: [id number] [address] [address] [place] [address] Problems Date Description Provider Status Onset: Rosacea Active Onset: Seasonal allergy Active Onset: Asthma Active Onset: Irritable bowel syndrome Active Onset: Hypothyroidism Active Onset: Essential hypertension Active Onset: Reflex sympathetic dystrophy of lower Active extremity Onset: Depressive disorder Active Onset: Pure hypercholesterolemia Active Onset: 06/25/2016 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 Active Family History Date Family Member(s) Problem(s) Comments Father No Current Problems Mother Cataract Social History Type Date Description Comments Marital Status Legal Status: Occupation Homemaker ETOH Use Never used alcohol Smoking Patient is a former smoker Quit 2000 Daily Caffeine Consumes on average 3 cups of regular coffee per day Allergies, Adverse Reactions, Alerts Date Description Reaction Status Severity Comments 08/15/2014 Penicillins active hives 08/15/2014 Sulfa Antibiotics active hives 08/15/2014 Bactrim active GI upset 08/15/2014 Tramadol active GI upset 08/15/2014 Morphine active GI upset 08/15/2014 Iodine active Hives 08/15/2014 Codeine active GI upset 08/15/2014 Erythromycin active GI upset 08/15/2014 Iodinated Diagnostic Agents active hives 08/15/2014 Reglan active GI upset Medications Medication Date Status Form Strength Qnty SIG Indications Ordering Provider Systane Ultra 08/14/ Active Solution 0.4-0.3% 1 drop Tosin [place] 2014 both Isaiah, eyes O.D. three times a day Omnaris / Active Suspension 50mcg/Act Unknown 0000 Clonidine HCL / Active Patches 0.1mg/24HR Unknown 0000 Weekly Advair HFA / Active Aerosol 230-21mcg/ Unknown 0000 Act Ventolin HFA / Active Aerosol 108(90Base Unknown 0000 ) mcg/Act Caltrate 600+D / Active Chewtabs 600-400mg- Unknown 0000 Unit Cyanocobalamin / Active Solution 1000mcg/ML Unknown 0000 Diovan / Active Tablets 160mg Unknown 0000 Gabapentin / Active Tablets 800mg 3 x Unknown 0000 daily Hyoscyamine / Active Tablets ER 0.375mg twice Unknown Sulfate ER 0000 12HR daily Singulair / Active Tablets 10mg Unknown 0000 Tudorza Pressair / Active Aerosol 400mcg/Act Unknown 0000 Zoloft / Active Tablets 25mg Unknown 0000 Amitiza / Active Capsules 24mcg 1 cap Unknown 0000 twice daily Atorvastatin / Active Tablets 40mg Unknown Calcium 0000 Dexilant / Active Capsules DR 60mg Unknown 0000 Levofloxacin / Active Tablets 750mg Unknown 0000 Lidopatch Pain / Active Patches 3.99-1.25% as Unknown Relief 0000 needed Miralax / Active Powder 3350NF Unknown 0000 Lipitor / Active Tablets 40mg Unknown 0000 Amlodipine 00/ Active Tablets 5mg take 1 Unknown Besylate 0000 tablet by mouth once daily Actonel / Hx Tablets 35mg Unknown 2015 Benzonatate / Hx Capsules 100mg Unknown 2015 Atrovent / Hx Solution 0.03% Unknown 2015 Nexium / Hx Capsules DR 40mg Unknown 2015 Results Description No Information Procedures Date CPT Code Description Status 06/25/2016 28563 Est Patient Intermediate Exam Completed 09/19/2015 29166 Est Patient Comprehensive Exam Completed 06/27/2014 17096 Est Patient Intermediate Exam Completed 06/10/2014 16731 Determination Of Refractive State Completed 06/10/2014 86541 Est Patient Comprehensive Exam Completed 03/08/2013 82387 Est Patient Intermediate Exam Completed 09/03/2012 39084 Est Patient Comprehensive Exam Completed 09/03/2012 523 Goggles Completed 07/20/2012 00315 Est Patient Comprehensive Exam Completed 05/18/2012 81850 Est Patient Intermediate Exam Completed 05/02/2011 13245 Est Patient Intermediate Exam Completed 01/22/2011 38656 Est Patient Intermediate Exam Completed 10/17/2010 00791 Extracapsular Cataract Extraction W/Intraocular Lens Completed 06/11/2010 07657 Est Patient Comprehensive Exam Completed 05/07/2010 66083 Est Patient Intermediate Exam Completed 01/10/2010 69550 Extracapsular Cataract Extraction W/Intraocular Lens Completed 12/29/2009 77025 Computerized Corneal Topography Completed 12/29/2009 17637 Scanning Laser W/Interp And Report Completed 12/29/2009 86467 Ophthalmic Biometry Completed 12/29/2009 57226 Ophthalmic Biometry Completed 06/09/2009 78241 Est Patient Intermediate Exam Completed 05/12/2009 11408 Determination Of Refractive State Completed 05/12/2009 22466 Est Patient Intermediate Exam Completed 05/11/2008 98154 Determination Of Refractive State Completed 05/11/2008 02602 Est Patient Comprehensive Exam Completed 05/11/2007 14017 Determination Of Refractive State Completed 05/11/2007 56539 Est Patient Intermediate Exam Completed 04/08/2006 97578 Est Patient Comprehensive Exam Completed 04/11/2005 09569 Determination Of Refractive State Completed 04/11/2005 04213 Est Patient Comprehensive Exam Completed 03/13/2004 84243 Scanning Laser W/Interp And Report Completed 03/13/2004 84888 Determination Of Refractive State Completed 03/13/2004 35300 Est Patient Comprehensive Exam Completed Encounters Type Date Location Provider CPT E/M Dx Office Visit 08/13/2016 Jay Mason MD, Tosin Colon O.D. 77299 H43.813 11:00a pc Z96.1 Office Visit 08/15/2014 2:30p Jay Mason MD, Tosin Colon O.D. 31558 379.21 pc Office Visit 05/27/2014 10:45a Jay Mason MD, Tosin Colon O.D. 89049 375.15 pc Office Visit 08/10/2012 12:10p Jay Mason MD, Dot Mcguire, 49072 695.3 pc O.DLuis Enrique 370.49 Office Visit 06/29/2012 12:10p Jay Mason MD, Dot Mcguire, 18631 373.00 pc O.D. Office Visit 10/12/2010 10:30a Jay Mason MD, Jay Mason M.D. 25436 366.16 pc Office Visit 05/14/2010 12:30p Jay Mason MD, Adelaida Reece O.D. 23845 077.99 pc Office Visit 03/27/2010 8:45a Jay Mason MD, Jay Mason M.D. 63941 695.3 pc 370.49 Office Visit 02/13/2010 9:30a Jay Mason MD, Jay Mason M.D. 39629 695.3 pc 370.49 Office Visit 12/29/2009 12:00p Jay Mason MD, Jay Mason M.D. 59627 366.16 pc Office Visit 12/13/2009 10:45a Jay Mason MD, Adelaida Reece O.D. 59955 pc Office Visit 08/23/2009 9:00a Jay Mason MD, Nicky Simpson.Wilner 38318 373.00 pc Office Visit 08/02/2009 9:15a Jay Mason MD, Nicky Simpson.Wilner 36414 373.00 pc Office Visit 07/26/2009 1:45p Jay Mason MD, Adelaida Reece O.DLuis Enrique 13645 372.05 pc Office Visit 07/11/2009 1:15p Jay Mason MD, Wlof Caban 55778 373.00 pc O.D. Office Visit 06/16/2009 11:15a Jay Mason MD, Adelaida Reece O.Wilner 31456 373.2 pc Office Visit 05/08/2006 2:20p Jay Mason MD, Dot Mcguire, 79416 379.21 pc O.D. Plan of Care 08/13/2016 - Tosin Colon O.D.H43.813 Vitreous degeneration, bilateralComments:You have Vitreous Floaters. If you have any changed in your floaters or flashing lights, please contact this office.Follow up:2 [id number] Presence of intraocular lensComments:The artificial lens implants in both eyes appear to be stable at this time.
[2017-08-25] MEDS ORDERED: Benzoin Compound STICK TOPICAL ONE (14:06)
[2017-08-25] MEDS ORDERED: Benzoin Compound STICK ONE (14:08)
--- NOTE | 2017-08-25 14:24 | UC ---
Shayy Dubon Emily, scribed for Trey Padilla MD on 08/25/17 at 1408 . HPI Wound/Suture Re-check - HPI Summary HPI Summary: In Room: This patient is a 72 year old F presenting to [facility] care with a chief complaint of suture removal needed following a laceration on 08/17/2017. The patient rates the pain 0/10 in severity. Symptoms aggravated by nothing. Symptoms alleviated by nothing. Patient reports pruritus. MD: Left calf laceration 7 days ago. BP 144/71, patient is on antihypertensive medications. Afebrile. Nurses: Pt had stitches placed last Friday and is here for them to be removed. Stitches are in lower leg. - History Of Current Complaint Chief Complaint: UCSkin Stated Complaint: STITCH REMOVAL Time Seen by Provider: 08/25/17 13:55 Hx Obtained From: Patient Hx Last Menstrual Period: post Onset/Duration: Sudden Onset, Lasting Days, Still Present Severity: Mild Pain Intensity: 0 Pain Scale Used: 0-10 Numeric - Allergies/Home Medications Allergies/Adverse Reactions: Allergies Allergy/AdvReac Type Severity Reaction Status Date / Time doxycycline Allergy Intermediate Nausea Verified 08/25/17 13:59 erythromycin base Allergy Intermediate GI Upset Verified 08/25/17 13:59 iodine Allergy Intermediate Hives Verified 08/25/17 13:59 latex Allergy Intermediate redness Verified 08/25/17 13:59 metoclopramide [From Reglan] Allergy Intermediate Anxiety Verified 08/25/17 13: 59 Opioids - Morphine Analogues Allergy Intermediate n/v Verified 08/25/17 13:59 Sulfa (Sulfonamide Allergy Intermediate Hives Verified 08/25/17 13:59 Antibiotics) morphine Allergy Nausea Verified 08/25/17 13:59 Penicillins Allergy Hives Verified 08/25/17 13:59 tramadol Allergy Nausea Verified 08/25/17 13:59 contrast dye Allergy Intermediate Hives Uncoded 08/17/17 18:09 BANDAID Allergy REDNESS, Uncoded 08/17/17 18:09 LATEX PMH/Surg Hx/FS Hx/Imm Hx Previously Healthy: No Respiratory History: Asthma GI/ History: Gastroesophageal Reflux Other History Of: Negative For: HIV, Hepatitis B, Hepatitis C, Anticoagulant Therapy - Surgical History Surgical History: Yes Surgery Procedure, Year, and Place: 1995 RIGHT CARPAL TUNNEL, ULNAR NERVE SURGERY, [facility]. 1997 PARATHYROIDECTOMY, [facility]. 1989 SINUS SURGERIES, [facility]. 2010 LEFT FOOT SURGERY TO REMOVE MOLE ON SECOND TOE, [facility] [place]. bilateral cataract extraction with IOL - 2012 [facility] [place] - Family History Known Family History: Positive: Cardiac Disease, Hypertension - Social History Occupation: Retired Lives: With Family Alcohol Use: None Substance Use Type: None Smoking Status (MU): Former Smoker Type: Cigarettes Amount Used/How Often: 1/2 pack/day Length of Time of Smoking/Using Tobacco: 21 years Have You Smoked in the Last Year: No When Did the Patient Quit Smoking/Using Tobacco: 04/07/90 - Immunization History Most Recent Influenza Vaccination: 2011 Most Recent Tetanus Shot: 2010 Review of Systems Skin: Other - Positive laceration to L calf and pruritis Gastrointestinal: Other - Negative nausea, vomiting, and diarrhea All Other Systems Reviewed And Are Negative: Yes Physical Exam - Summary Physical Exam Summary: Appearance: The patient is well-appearing, is in no pain distress, and is well- nourished. Eyes: Conjunctiva are clear. ENT: The hearing is grossly normal, the pharynx is normal, and the TMs are normal. There is no muffled or hoarse voice. Neck: The neck is supple and there is no lymphadenopathy. Respiratory: The chest is nontender. The lungs are clear, there are normal breath sounds, and there is no respiratory distress. Cardiovascular: Heart is regular rate and rhythm. There is no murmur. Abdomen: The abdomen is soft and nontender. There is no organomegaly. Bowel sounds: present Musculoskeletal: Strength is intact. The patient moves all extremities. Neurological: The patient is alert. Psychological: The patient displays age appropriate behavior Skin: Negative for rashes. FOLLOW-UP ON 1 WEEK OLD LACERATION TO THE LEFT ANTERIOR TIBIA. ARROW SHAPED LACERATION, EACH ARM IS 2CM AND THERE ARE 7 SUTURES PLACED. THERE IS SOME MILD REACTIVE ERYTHEMA, BUT NO EVIDENCE OF INFECTION. Triage Information Reviewed: Yes Vital Signs: Initial Vital Signs Temp 98.3 F 08/25/17 13:57 Pulse 82 08/25/17 13:57 Resp 18 08/25/17 13:57 BP 144/71 08/25/17 13:57 Pulse Ox 97 08/25/17 13:57 Vital Signs Reviewed: Yes Course/Dx - Course Course Of Treatment: Pt with a well healed laceration in an area that is subject to trauma and that can be difficult to heal. The front of her left tibia , 7 stitches was removed and there was a slight less than 1 mm opening and bleeding at the end of one of the arms of the laceration. Benzoin and steristrips were used to support the healing laceration. Pt is moving and will use the lynne wrap for mechanical protection. Elevated BP of 144/71 but is currently on antihypertensives. This should be rechecked a few times in the next month. Pt has been informed of BP reading. Medications have been included in the original chart and reviewed. - Differential Dx - Laceration/Wound Provider Diagnoses: Suture removal, well healing laceration L tibia Discharge - Sign-Out/Discharge Documenting (check all that apply): Discharge/Admit/Transfer - Discharge Plan Condition: Stable Disposition: HOME Patient Education Materials: Steristrips (ED), Stitches Removal (ED) Referrals: Noah Maldonado MD [Primary Care Provider] - Additional Instructions: SEEK CARE AT THE EMERGENCY DEPARTMENT IF SYMPTOMS WORSEN OR IF NEW SYMPTOMS DEVELOP. FOLLOW UP WITH PRIMARY CARE PHYSICIAN. WE DISCUSSED: 1. Use lynne for protection over wound for the next 2 weeks when needed. 2. Your blood pressure with somewhat elevated today. Recheck it 3 times over the next month and see your doctor for this condition if it is above 120/80. 3. Re check at any time for signs of infection. - Billing Disposition and Condition Condition: STABLE Disposition: HOME The documentation as recorded by the Shayy tubbs Emily accurately reflects the service I personally performed and the decisions made by me, Trey Padilla MD.
== END 2017-08-25 14:35 | disposition home or self-care (01) ==
LOC: UCEAST 13:50
DX: S81.812D Laceration without foreign body, left lower leg, subsequent encounter (principal); R03.0 Elevated blood-pressure reading, without diagnosis of hypertension; Z88.1 Allergy status to other antibiotic agents; Z88.8 Allergy status to other drugs, medicaments and biological substances; Z88.5 Allergy status to narcotic agent; Z91.040 Latex allergy status; Z88.2 Allergy status to sulfonamides; Z88.0 Allergy status to penicillin; Z91.041 Radiographic dye allergy status; Z87.891 Personal history of nicotine dependence; X58.XXXD Exposure to other specified factors, subsequent encounter

== ENCOUNTER 2017-09-16 12:38 | Emergency (ER) | payer MEDICARE, BC ==
--- OUTSIDE RECORDS SUMMARY | 2017-09-16 12:49 | XMS REPORT ---
:1945 External Reference #:[id number] Author Organization [facility] Address [address] [place] [address] Phone [phone] Care Team Providers Name Role Phone Noah Maldonado M.D. Primary Care Physician Unavailable Payers Type Date Identification Numbers Payment Provider Subscriber Medicare Primary Effective: Policy Number: Medicare - NGS Kat Bunn 2001 [id number] Vinh PayID: [id number] [address] [place] [address] Medigap Part B Policy Number: [id number] BS [place] Jackie Justice PayID: [id number] [address] [address] [place] [address] Problems Date Description Provider Status Onset: Rosacea Active Onset: Seasonal allergy Active Onset: Asthma Active Onset: Irritable bowel syndrome Active Onset: Hypothyroidism Active Onset: Essential hypertension Active Onset: Reflex sympathetic dystrophy of lower Active extremity Onset: Depressive disorder Active Onset: Pure hypercholesterolemia Active Onset: 08/22/2017 Other secondary cataract, bilateral Tosin Colon O.D. Active Onset: 06/25/2016 Tear film insufficiency Tosin [...] 08/14/ Active Solution 0.4-0.3% 1 drop Tosin AyalaLuis Enrique 2014 both Isaiah, eyes O.D. three times [...] Pressair / Active Aerosol 400mcg/Act Unknown 0000 Amitiza / Active Capsules 24mcg 1 cap Unknown 0000 twice daily Dexilant / Active Capsules DR 60mg Unknown 0000 Lidopatch Pain / Active Patches 3.99-1.25% as Unknown Relief 0000 needed Miralax / Active Powder 3350NF Unknown 0000 Lipitor / Active Tablets 40mg Unknown 0000 Amlodipine / Active Tablets 5mg take 1 Unknown Besylate 0000 tablet by mouth once daily Valsartan 00/00/ Active Tablets 80mg Unknown 0000 Azithromycin 00/ Active Tablets 500mg Three Unknown 0000 Times A Week Actonel / Hx Tablets 35mg Unknown 2015 Benzonatate // Hx Capsules 100mg Unknown 2015 Atrovent / Hx Solution 0.03% Unknown 2015 Nexium / Hx Capsules DR 40mg Unknown 2015 Zoloft / Hx Tablets 25mg Unknown 2017 Atorvastatin /00/ Hx Tablets 40mg Unknown Calcium 2017 Levofloxacin / Hx Tablets 750mg Unknown 2017 Results Description No Information Procedures Date CPT Code Description Status 08/22/2017 99484 Est Patient Comprehensive Exam Completed 06/25/2016 94082 Est Patient Intermediate Exam Completed 09/19/2015 31321 Est Patient Comprehensive Exam Completed 06/27/2014 73723 Est Patient Intermediate Exam Completed 06/10/2014 31033 Determination Of Refractive State Completed 06/10/2014 25792 Est Patient Comprehensive Exam Completed 03/08/2013 22119 Est Patient Intermediate Exam Completed 09/03/2012 12832 Est Patient Comprehensive Exam Completed 09/03/2012 523 Goggles Completed 07/20/2012 08865 Est Patient Comprehensive Exam Completed 05/18/2012 92836 Est Patient Intermediate Exam Completed 05/02/2011 10705 Est Patient Intermediate Exam Completed 01/22/2011 71890 Est Patient Intermediate Exam Completed 10/17/2010 80117 Extracapsular Cataract Extraction W/Intraocular Lens Completed 06/11/2010 68321 Est Patient Comprehensive Exam Completed 05/07/2010 14625 Est Patient Intermediate Exam Completed 01/10/2010 51422 Extracapsular Cataract Extraction W/Intraocular Lens Completed 12/29/2009 47915 Computerized Corneal Topography Completed 12/29/2009 35231 Scanning Laser W/Interp And Report Completed 12/29/2009 76716 Ophthalmic Biometry Completed 12/29/2009 37429 Ophthalmic Biometry Completed 06/09/2009 73536 Est Patient Intermediate Exam Completed 05/12/2009 17532 Determination Of Refractive State Completed 05/12/2009 36759 Est Patient Intermediate Exam Completed 05/11/2008 09377 Determination Of Refractive State Completed 05/11/2008 10258 Est Patient Comprehensive Exam Completed 05/11/2007 38298 Determination Of Refractive State Completed 05/11/2007 74657 Est Patient Intermediate Exam Completed 04/08/2006 66534 Est Patient Comprehensive Exam Completed 04/11/2005 99178 Determination Of Refractive State Completed 04/11/2005 35635 Est Patient Comprehensive Exam Completed 03/13/2004 25695 Scanning Laser W/Interp And Report Completed 03/13/200445383 Determination Of Refractive State Completed 03/13/2004 74399 Est Patient Comprehensive Exam Completed Encounters Type Date Location Provider CPT E/M Dx Office Visit 08/13/2016 Jay Mason MD, Tosin Colno O.D. 98247 H43.813 11:00a pc Z96.1 Office Visit 08/15/2014 2:30p Jay Mason MD, Tosin Colon O.D. 31557 379.21 pc Office Visit 05/27/2014 10:45a Jay Mason MD, Tosin Colon O.D. 91401 375.15 pc Office Visit 08/10/2012 12:10p Jay Mason MD, Dot Mcguire, 23466 695.3 pc O.DLuis Enrique 370.49 Office Visit 06/29/2012 12:10p Jay Mason MD, Dot Mcguire, 84200 373.00 pc O.D. Office Visit 10/12/2010 10:30a Jay Mason MD, Jay Mason M.D. 54883 366.16 pc Office Visit 05/14/2010 12:30p Jay Mason MD, Adelaida Reece O.D. 07714 077.99 pc Office Visit 03/27/2010 8:45a Jay Mason MD, Jay Mason M.D. 44652 695.3 pc 370.49 Office Visit 02/13/2010 9:30a Jay Mason MD, Jay Mason M.D. 93460 695.3 pc 370.49 Office Visit 12/29/2009 12:00p Jay Mason MD, Jay Mason M.D. 30896 366.16 pc Office Visit 12/13/2009 10:45a Jay Mason MD, Nicky Simpson.Wilner 30794 pc Office Visit 08/23/2009 9:00a Jay Mason MD, Adelaida Reece O.DLuis Enrique 93988 373.00 pc Office Visit 08/02/2009 9:15a Jay Mason MD, Adelaida Reece O.DLuis Enrique 71326 373.00 pc Office Visit 07/26/2009 1:45p Jay Mason MD, Nicky Simpson.Wilner 92374 372.05 pc Office Visit 07/11/2009 1:15p Jay Mason MD, Wolf Caban 63499 373.00 pc O.D. Office Visit 06/16/2009 11:15a Jay Mason MD, Nicky Simpson.Wilner 63349 373.2 pc Office Visit 05/08/2006 2:20p Jay Mason MD, Dot Mcguire, 31994 379.21 pc O.D. Plan of Care Future Appointment(s):08/25/2018 9:15 am - Tosin Colon O.D. at Jay Mason MD, 08/22/2017 - Tosin Colon O.D.H04.123 Dry eye syndrome of bilateral lacrimal glandsComments:Both of your eyes appear to be dry. Use artificial tears as directed. You can use the tears more often if you are reading a book or are on the computer, as we tend to blink less, making our eyes dry out more.[facility] offers a few items in our optical department to help alleviate dry eye symptoms. try gel tears at night before bedFollow up:1-2 sddkzJ15.813 Vitreous degeneration, bilateralComments:Smoking can increase the risk of developing or worsening any eye related disease, as well as affect your overall health. If you are a smoker, we strongly recommend that you quit.If you are not a smoker, we strongly recommend that you do not start. You have a Posterior Vitreous Detachment. If you have any changes in your floaters or flashing lights, please contact this office.Z96.1 Presence of intraocular lensComments:Smoking can increase the risk of developing or worsening any eye related disease, as well as affect your overall health. If you are a smoker, we strongly recommend that you quit.If you are not a smoker, we strongly recommend that you do not start. The artificial lens implants in both eyes appear to be stable at this time.H26.493 Other secondary cataract, bilateralComments:Smoking can increase the risk of developing or worsening any eye related disease, as well as affect your overall health. If you are a smoker , we strongly recommend that you quit.If you are not a smoker, we strongly recommend that you do not start. There is clouding in the sac that holds your artificial lens. When your vision bothers you, Dr. Mason will do a laser treatment here in the office to improve your vision.
--- NOTE | 2017-09-16 14:09 | ED ---
Head Injury - HPI Summary HPI Summary: Patient presents status post head injury earlier today (around 11 AM). She reports she was in her kitchen while construction workers were working overhead and asked only dropped a board on her head. She reports she has numbness and pain along the right top portion of her skull and also has some right-sided neck pain. This does not radiate into her shoulder or arm and she denies loss of consciousness, photophobia, nausea, dizziness, numbness, tingling, weakness. She does not take any anticoagulant. She does have RSD most noticeable on the right side. She's not sure if this recent injury just flared this up. She takes gabapentin and follows with her PCP for this condition. - History Of Current Complaint Chief Complaint: EDHeadInjury Stated Complaint: HEAD INJURY Time Seen by Provider: 09/16/17 13:11 Hx Obtained From: Patient, Family/Ict Developer - sister Hx Last Menstrual Period: post Pain Intensity: 2 - Allergies/Home Medications Allergies/Adverse Reactions: Allergies Allergy/AdvReac Type Severity Reaction Status Date / Time doxycycline Allergy Intermediate Nausea Verified 09/16/17 12:43 erythromycin base Allergy Intermediate GI Upset Verified 09/16/17 12:43 iodine Allergy Intermediate Hives Verified 09/16/17 12:43 latex Allergy Intermediate redness Verified 09/16/17 12:43 metoclopramide [From Reglan] Allergy Intermediate Anxiety Verified 09/16/17 12: 43 Opioids - Morphine Analogues Allergy Intermediate n/v Verified 09/16/17 12:43 Sulfa (Sulfonamide Allergy Intermediate Hives Verified 09/16/17 12:43 Antibiotics) morphine Allergy Nausea Verified 09/16/17 12:43 Penicillins Allergy Hives Verified 09/16/17 12:43 tramadol Allergy Nausea Verified 09/16/17 12:43 contrast dye Allergy Intermediate Hives Uncoded 09/16/17 12:43 BANDAID Allergy REDNESS, Uncoded 09/16/17 12:43 LATEX Home Medications: Home Medications Albuterol 2.5MG/3ML (0.083%)* [Ventolin 2.5 MG/3 ML NEB.OKSANA*] 2.5 mg INH Q6H PRN 09/16/17 [History Confirmed 09/16/17] Bisacodyl EC TAB* [Dulcolax EC TAB*] 10 mg PO BEDTIME 09/16/17 [History Confirmed 09/16/17] Alfredito/D3/Mag11/Zinc/Puppet Engineer/Salomón/Bor [Caltrate 600+D Plus Tablet] 1 tab PO DAILY 09/16 [History Confirmed 09/16/17] Ipratropium [place] 2 spray NASAL BID 09/16/17 [History Confirmed 09/16/17] Magnesium Chloride EC TAB* [Slow Mag EC TAB*] 2 tab PO BEDTIME 09/16/17 [ History Confirmed 09/16/17] Montelukast Sodium TAB* [Singulair 10 MG TAB*] 10 mg PO DAILY 09/16/17 [History Confirmed 09/16/17] Simethicone TAB* [Mylicon TAB*] 125 mg PO ACHS PRN 09/16/17 [History Confirmed 09/16/17] PMH/Surg Hx/FS Hx/Imm Hx Previously Healthy: Yes Endocrine/Hematology History: Reports: Hx Thyroid Disease - parathyroidectomy - 1997 Denies: Hx Anticoagulant Therapy, Hx Diabetes Cardiovascular History: Reports: Hx Hypercholesterolemia Denies: Hx Congestive Heart Failure, Hx Hypertension - on meds, Hx Pacemaker/ ICD, Other Cardiovascular Problems/Disorders - hyperlipidemia Respiratory History: Reports: Hx Asthma - inhalers / DAILY MED, Hx Chronic Bronchitis, Hx Sleep Apnea - no longer uses CPAP, Other Respiratory Problems/ Disorders - COPD Denies: Hx Chronic Obstructive Pulmonary Disease (COPD), Hx Lung Cancer, Hx Pneumonia, Hx Pulmonary Embolism GI History: Reports: Hx Gastroesophageal Reflux Disease - on med, Hx Hiatal Hernia, Hx Irritable Bowel - on med, Other GI Disorders - reports constipation issues Denies: Hx Gall Bladder Disease, Hx Gastrointestinal Bleed, Hx Ulcer, Hx Urosepsis History: Denies: Hx Kidney Stones, Hx Renal Disease Musculoskeletal History: Reports: Hx Arthritis, Hx Tendonitis - LEFT KNEE, Other Musculoskeletal History - reports left knee torn meniscus Sensory History: Reports: Hx Cataracts - bilateral, Hx Contacts or Glasses - glasses Denies: Hx Deafness, Hx Hearing Aid Opthamlomology History: Reports: Hx Cataracts - bilateral, Hx Contacts or Glasses - glasses Neurological History: Reports: Other Neuro Impairments/Disorders - RSD Denies: Hx Dementia, Hx Migraine, Hx Seizures, Hx Transient Ischemic Attacks (TIA) Psychiatric History: Reports: Hx Anxiety - on med, Hx Depression - on med Denies: Hx Panic Disorder, Hx Schizophrenia, Hx Bipolar Disorder - Cancer History Hx Chemotherapy: No Hx Radiation Therapy: No - Surgical History Surgery Procedure, Year, and Place: 1995 RIGHT CARPAL TUNNEL, ULNAR [place]E [place] [facility] [place]ATH[place]ECTOMY, [facility]. 1989 SINUS SURGERIES, [facility]. 2010 LEFT FOOT SURGERY TO REMOVE MOLE ON SECOND TOE, [facility] [place]. bilateral cataract [place] with IOL [place] [facility] [place] Anesthesia Reactions: Yes - reports slow to wake up - Immunization History Date of Tetanus Vaccine: unknown per pt Infectious Disease History: No Infectious Disease History: Denies: Traveled Outside the [place] in Last 30 Days - Family History Known Family History: Positive: Cardiac Disease, Hypertension - Social History Occupation: Retired Lives: Alone Alcohol Use: None Hx Substance Use: No Substance Use Type: Reports: None Hx Tobacco Use: Yes - not currently Smoking Status (MU): Former Smoker Type: Cigarettes Amount Used/How Often: 1/2 pack/day Length of Time of Smoking/Using Tobacco: 21 years Have You Smoked in the Last Year: No Review of Systems Constitutional: Negative Negative: Fatigue Eyes: Negative Negative: Photophobia, Blurred Vision, Diplopia ENT: Negative Negative: Epistaxis, Dental Pain, Ear Ache Cardiovascular: Negative Respiratory: Negative Gastrointestinal: Negative Positive: no symptoms reported. Negative: incontinence Positive: Arthralgia. Negative: Myalgia, Decreased ROM Skin: Negative Positive: Headache. Negative: Weakness, Paresthesia, Numbness, Syncope, Slurred Speech Psychological: Normal All Other Systems Reviewed And Are Negative: Yes Physical Exam Triage Information Reviewed: Yes Vital Signs On Initial Exam: Initial Vitals Temp Pulse Resp BP Pulse Ox 99.9 F 87 16 161/76 97 09/16/17 12:41 09/16/17 12:41 09/16/17 12:41 09/16/17 12:41 09/16/17 12:41 Vital Signs Reviewed: Yes Appearance: Positive: Well-Appearing, Well-Nourished, Pain Distress - mild Skin: Positive: Warm, Skin Color Reflects Adequate Perfusion, Dry - no ecchymosis, no erythema, no lac/abrasion Head/Face: Positive: Other - no gross deformity but she is TTP over Rt parietal region Eyes: Positive: Normal, EOMI, GRADY - no photophobia, Conjunctiva Clear ENT: Positive: Normal ENT inspection, Hearing grossly normal, Pharynx normal, TMs normal - no hemotympanum. Negative: Trismus Dental: Negative: Dental Fracture @ Neck: Positive: Supple, Tenderness @ - Rt paracervical spine Respiratory/Lung Sounds: Positive: Breath Sounds Present Cardiovascular: Positive: Normal Abdomen Description: Positive: Nontender, Soft Musculoskeletal: Positive: Strength/ROM Intact Neurological: Positive: Normal, Sensory/Motor Intact, Alert, Oriented to Person Place, Time, CN Intact II-III, Reflexes Intact, Facial Symmetry, Speech Normal Psychiatric: Positive: Normal Diagnostics - Vital Signs Vital Signs Temp Pulse Resp BP Pulse Ox 09/16/17 12:41 99.9 F 87 16 161/76 97 - Laboratory Lab Statement: Any lab studies that have been ordered have been reviewed, and results considered in the medical decision making process. Head Injury Course/Dx Course Of Treatment: CT brain and cervical spine w/o acute findings. No s/sx of concussion other than MARTIN - advised rest for 48 hours and f/u w/ PCP. * Return to ED if danger s/sx present - Diagnoses Provider Diagnoses: Head injury, Cervical strain Discharge - Sign-Out/Discharge Documenting (check all that apply): Discharge/Admit/Transfer - Discharge Plan Condition: Stable Disposition: HOME Patient Education Materials: Head Injury (ED), Cervical Strain (ED) Referrals: Noah Maldonado MD [Primary Care Provider] - Additional Instructions: Rest from activity and technology for 48 hours - follow-up with PCP after this time for recheck of symptoms. Call today to schedule an appointment. In the meantime, you may ice your head in area of pain, take acetaminophen alternating with ibuprofen (take with food) *If you develop numbness, tingling, weakness, slurred speech, balance issues, change in vision, intractable vomiting, return to the ED - Billing Disposition and Condition Condition: STABLE Disposition: Home
--- NOTE | 2017-09-16 14:37 | RAD ---
indication: Right head and neck pain after a board "fell on to the vertex of her head today" COMPARISON: CT of the brain November 20, [address] scan of the brain and c-spine was performed without intravenous contrast enhancement. Contiguous axial sections were obtained from the lung apices through the vertex. BRAIN: The ventricles, cisterns and sulci are within normal limits. No significant focal abnormality or mass effect is seen. The jaffe-white differentiation is adequately maintained. There is no intracranial hemorrhage. No significant bony abnormality is present. The mastoid air cells are appropriately aerated. The visualized paranasal sinuses are clear. C-SPINE: On the sagittal plane images the vertebral bodies and facet joints are appropriately aligned. The normal cervical lordosis is maintained. There is no definite fracture or dislocation. Degenerative changes include loss of intervertebral disc height most severe at C5/C6 where there is sclerotic change of the articulating endplates and marginal osteophyte formation. There is no hyperdense material in the cervical canal to indicate hemorrhage. The visualized musculature and soft tissues are normal. There is no gross lymphadenopathy visualized. There is coarse calcification at the bilateral carotid bulbs. There appears to be surgical material along the right lateral margin of the thyroid. The visualized portion of the lung apices are clear. IMPRESSION: 1. No calvarial fracture or acute intracranial hemorrhage. 2. Degenerative changes of the cervical spine as described above without acute fracture or dislocation.
[2017-09-16] MEDS ORDERED: Acetaminophen TAB* 325 MG PO ONE (15:20)
[2017-09-16 15:50] VITALS: BP 162/80
== END 2017-09-16 15:45 | disposition home or self-care (01) ==
LOC: ED 12:38
DX: S09.90XA Unspecified injury of head, initial encounter (principal); S16.1XXA Strain of muscle, fascia and tendon at neck level, initial encounter; W20.8XXA Other cause of strike by thrown, projected or falling object, initial encounter; Y92.9 Unspecified place or not applicable; G90.50 Complex regional pain syndrome I, unspecified; I10 Essential (primary) hypertension; K21.9 Gastro-esophageal reflux disease without esophagitis; F41.8 Other specified anxiety disorders; Z91.041 Radiographic dye allergy status; Z79.899 Other long term (current) drug therapy; Z87.891 Personal history of nicotine dependence; Z88.3 Allergy status to other anti-infective agents; Z88.0 Allergy status to penicillin; Z88.5 Allergy status to narcotic agent; Z88.2 Allergy status to sulfonamides; Z88.8 Allergy status to other drugs, medicaments and biological substances
CPT/HCPCS: 70450; 72125; 99282

== ENCOUNTER → 2019-01-29 06:37 | Day surgery (SDC) | payer MEDICARE, BC ==
[~2019-01-29 06:37] MED LIST changes: +Acetaminophen TAB* 325 MG PO PRN; +Buffered Lidocaine 1% SYRIN* 1 ML/SYRINGE INTRADERM ONE; -Dexamethasone IV* 4 MG/ML 1 ML (4 MG) IV SLOW PU ONE; +Dexamethasone IV* 4 MG/ML 1 ML (4 MG) ONE; +EPHEDrine (Pressors)* 50 MG/ML VIAL ONE; -Famotidine IV* 10 MG/ML 2 ML (20 mg) IV ONE; +Lactated Ringers 1000 ML Bag* 1,000 ML IV SCH; +Lidocaine 1% w EPI 1:100,000* MDV 20 ML VIAL ONE; +Lidocaine 2% PF * 5 ML VIAL ONE; +Lidocaine 4% TOPICAL* 50 ML TOP.SOLN ONE; +Midazolam* 1 MG/ML 2 ML VIAL (2 MG) ONE; +Naloxone* 0.4 MG/ML 1 ML VIAL IV PRN; +Ondansetron INJ* 2 MG/ML VIAL ONE; +Oxymetazoline 0.05% NASAL SPR* 15 ML BTL ONE; +Propofol* 10 MG/ML 20 ML BTL ONE; +Succinylcholine* 20 MG/ML 10 ML VIAL ONE; +fentaNYL* 50 MCG/ML 2 ML VIAL (100 MCG VIAL) IV PRN; +fentaNYL* 50 MCG/ML 2 ML VIAL (100 MCG VIAL) ONE; +oxyCODONE TAB* 5 MG TAB PO PRN
[2019-01-29 11:02] VITALS: BP 148/78
--- NOTE | 2019-01-29 12:58 | OP ---
DATE OF OPERATION: 01/29/19 - [facility] DATE OF : 49 SURGEON: Tobi Rico MD DOBBY LOOMS PEGGER: None. ANESTHESIA: General. PRE-OP DIAGNOSIS: Right antrochoanal polyp. POST-OP DIAGNOSIS: Right antrochoanal polyp. OPERATIVE PROCEDURE: Right maxillary antrostomy with removal of antrochoanal polyp. ESTIMATED BLOOD LOSS: Less than 10 cc. SPECIMENS: Fragments of right antrochoanal polyp for permanent section. INDICATIONS: This is a 73-year-old woman who presented for right nasal airway obstruction. She has had a long-standing history of allergy and chronic sinus issues and did have a sinus surgery in the distant past. On exam in the office , it was noted that she had a large polyp coming out of the right maxillary sinus consistent with an antrochoanal polyp. The decision was made to bring the patient to the operating room for removal. DESCRIPTION OF PROCEDURE: On 01/29/19, the patient was brought to the operating room. General anesthesia was induced and an oral endotracheal tube was placed. The patient was then draped and a time-out was performed. The right nasal cavity was packed with pledgets soaked with Afrin and 4% lidocaine. Once adequate time had been allotted for vasoconstriction, approximately 1.5 cc of 1% lidocaine with 1:100,000 epinephrine was infiltrated into the root of the middle turbinate, the body of the middle turbinate and the lateral nasal wall. The procedure was begun by grasping the antrochoanal polyp at its point of origination through the maxillary sinus antrum. The bulk of the volume of the polyp came out in 2 large fragments. At this point, the edges of the prior maxillary antrostomy were widened on their anterior aspect to facilitate a little bit better exposure of the maxillary sinus cavity. The polyp appeared to be pedicled on the anterolateral wall of the maxillary sinus. The mucosa here was stripped utilizing a giraffe cup forceps and a 45-degree angled scope. Once all of the mucosa in the area had been stripped, the patient was returned to the care of the anesthesiologist. She was extubated and delivered to the PACU in stable condition. [id number]/[facility] #: [id number] [facility]OSPITALSo[facility]
== END | disposition home or self-care (01) ==
LOC: OR 06:37
PROVIDERS: ATTEND Otolaryngology
DX: J33.8 Other polyp of sinus (principal); I10 Essential (primary) hypertension; J44.9 Chronic obstructive pulmonary disease, unspecified; G47.33 Obstructive sleep apnea (adult) (pediatric); Z87.891 Personal history of nicotine dependence; K21.9 Gastro-esophageal reflux disease without esophagitis; K58.9 Irritable bowel syndrome, unspecified; G90.511 Complex regional pain syndrome I of right upper limb; F41.8 Other specified anxiety disorders; E78.00 Pure hypercholesterolemia, unspecified
CPT/HCPCS: 88305; A9270-GY; J0330; J1100; J2250; J2405; J2704; J3010

== ENCOUNTER 2019-02-01 12:28 | Emergency (ER) | payer MEDICARE, BC ==
--- OUTSIDE RECORDS SUMMARY | 2019-02-01 12:41 | XMS REPORT | Continuity of Care Document ---
:1945 External Reference #:[id number] Author Name Tobi Rico MD Address [address] [place] [address] Care Team Providers Name Role Phone Noah Maldonado M.D. - Internal Care Team Information Privacy Attorney [phone] Medicine Problems Active Problems Provider Date Essential hypertension Tobi Rico MD Onset: 01/11/2009 Social History Type Date Description Comments Sex Unknown Tobacco Use Start: Unknown End: Former Cigarette Smoker for 12 years Unknown Packs Daily 1 Tobacco Use Start: Unknown Never Smoked Cigars Tobacco Use Start: Unknown Never Smoked A Pipe Smoking Status Reviewed: 07/22/17 Never Smoked A Pipe Smokeless Tobacco Never Used Smokeless Tobacco ETOH Use Denies alcohol use Tobacco Use Start: Unknown End: Patient is a former smoker Unknown Allergies, Adverse Reactions, Alerts Active Allergies Reaction Severity Comments Date Penicillin 02/29/2004 Sulfa 02/29/2004 Contrast Dye hives 01/11/2009 Bactrim 01/11/2009 Erythromycin 01/11/2009 Morphine 01/11/2009 Opioid Analgesics 02/21/2011 Tramadol 02/21/2011 Iodine 02/21/2011 Reglan 12/04/2012 Doxy 07/22/2017 Medications Active Medications SIG Qnty Indications Ordering Date Provider Methylprednisolone take as directed 1pluke Marcano 12/31/2018 4mg SNOWK MD Jacky Amlodipine 1 po qd Noah Maldonado 5mg M.D. Caltrate 600+D 1 po bid Noah Maldonado M.D. Gabapentin 1 po tid Noah Maldonado 800mg M.D. Tudorza Pressair 1 puff bid Noah Maldonado 400mcg M.D. Dexilant take 1 capsule Unknown 60mg Capsules DR by mouth once daily Advair HFA Unknown 230-21mcg/Act Aerosol Hyoscyamine Sulfate ER Unknown 0.375mg Tablets ER 12HR Montelukast Sodium qd , 10mg Tablets M.D. Atorvastatin Calcium 1 po qd 40mg M.D. Tablets Zoloft 1 by mouth every [place], 50mg Tablets day M.D. Albuterol HFA 2 puffs every 2 ez, 90mcg/Act Aerosol to 4 hours as M.D. needed for wheezing Albuterol Sulfate use in nebulizer [facility] (2.5mg/3ML) every 4 hours as M.D. 0.083% Nebulizer needed for wheezing Amitiza Unknown 24mcg Capsules Azithromycin Take 1 Tablet By Unknown 500mg Tablets Mouth Three Times A Week Miralax twice daily Unknown Powder Immunizations Description No Information Available Vital Signs Date Vital Result Comment 12/31/2018 11:36am Weight 160.00 lb Weight 72.576 kg Height 62.01 inches 5'2.01" Height in cm's 157.5 cm BMI (Body Mass Index) 29.3 kg/m2 07/22/2017 10:50am Weight 175.00 lb Weight 79.380 kg Height 62.01 inches 5'2.01" Height in cm's 157.5 cm BMI (Body Mass Index) 32.0 kg/m2 Results Description No Information Available Procedures Date Code Description Status 12/31/2018 13436 Nasal Endoscopy, Diagnostic Completed Medical Devices Description No Information Available Encounters Description No Information Available Assessments Date Code Description Provider 12/31/2018 J33.8 Other polyp of sinus Tobi Rico MD Plan of Treatment Future Appointment(s):02/05/2019 10:00 am - Tobi Rico MD at [place], After 04/07/809 9:15 am - Tobi Rico MD at [facility] [place] O R012/31/2018 - Tobi Rico MDJ33.8 Other polyp of sinus Functional Status Description No Information Available Mental Status Description No Information Available Referrals Description No Information Available
--- OUTSIDE RECORDS SUMMARY | 2019-02-01 12:41 | XMS REPORT | Continuity of Care Document ---
:1945 External Reference #:[id number] Author Name Ana Rankin PA-C Address [address] [place] [address] Care Team Providers Name Role Phone Noah Maldonado M.D. - Internal Care Team Information Inspector Eyeglass [phone] Medicine Problems Active Problems Provider Date Essential hypertension Tobi Rico MD Onset: 01/11/2009 Social History Type Date Description Comments Sex Unknown Tobacco Use Start: Unknown End: Former Cigarette Smoker for 12 years Unknown Packs Daily 1 Tobacco Use Start: Unknown Never Smoked Cigars Tobacco Use Start: Unknown Never Smoked A Pipe Smoking Status Reviewed: 01/25/19 Never Smoked A Pipe Smokeless Tobacco Never [...] Ordering Date Provider Methylprednisolone take as directed 1pack J33.8 Tobi Marcano 01/26/2019 4mg TBPK MD Jacky Clindamycin HCL Take 1 Capsule Unknown 300mg Capsules By Mouth 3 Times A Day Miralax twice daily Unknown Powder Amitiza Unknown 24mcg Capsules Albuterol Sulfate use in nebulizer Noah Maldonado (2.5mg/3ML) every 4 hours as M.D. 0.083% Nebulizer needed for wheezing Albuterol HFA 2 puffs every 2 Skezas, Noah 90mcg/Act Aerosol to 4 hours as M.D. needed for wheezing Zoloft 1 by mouth every Skezas, Noah 50mg Tablets day M.D. Atorvastatin Calcium 1 po qd Skezas, Noah 40mg M.D. Tablets Montelukast Sodium qd ez, Noah 10mg Tablets M.D. Hyoscyamine Sulfate ER Unknown 0.375mg Tablets ER 12HR Advair HFA Unknown 230-21mcg/Act Aerosol Dexilant take 1 capsule Unknown 60mg Capsules DR by mouth once daily Tudorza Pressair 1 puff bid ez, Noah 400mcg M.D. Gabapentin 1 po tid Skezas, Noah 800mg M.D. Caltrate 600+D 1 po bid Skezas, Noah M.D. Amlodipine 1 po qd Skezas, 5mg M.D. History Medications Methylprednisolone take as directed 1[facility] Marcano 12/31/2018 - 4mg SHIRA Rico MD 01/25/2019 Immunizations Description No Information Available Vital Signs Date Vital Result Comment 01/26/2019 9:55am Weight 160.00 lb Weight 72.576 kg Height 62.01 inches 5'2.01" Height in cm's 157.5 cm BMI (Body Mass Index) 29.3 kg/m2 12/31/2018 11:36am Weight 160.00 lb Weight 72.576 kg Height 62.01 inches 5'2.01" Height in cm's 157.5 cm BMI (Body Mass Index) 29.3 kg/m2 Results Description No Information Available Procedures Date Code Description Status 01/26/2019 66193 Nasal Endoscopy, Diagnostic Completed 12/31/2018 23425 Nasal Endoscopy, Diagnostic Completed Medical Devices Description No Information Available Encounters Type Date Location Provider Dx Diagnosis Office Visit 01/26/2019 [place] Ana Rankin, J33.8 Other polyp of 10:00a 04/07/07 PA-C sinus Assessments Date Code Description Provider 01/26/2019 Garrett33.8 Other polyp of sinus Ana Rankin PA-C 12/31/2018 J33.8 Other polyp of sinus Tobi Rico MD Plan of Treatment Future Appointment(s):02/05/2019 10:00 am - Tobi Rico MD at [place], After 04/07/809 9:15 am - [place] [facility] [place] RODOLFO Meza-CJ33.8 Other polyp of sinusNew Medication:Methylprednisolone 4 mg - take as directed Functional Status Description No Information Available Mental Status Description No Information Available Referrals Description No Information Available
--- OUTSIDE RECORDS SUMMARY | 2019-02-01 12:41 | XMS REPORT | Summary of Care ---
:1945 Author Organization [facility] Address [address] [place] [address] Care Team Providers Name Role Phone Noah Maldonado MD Primary Care Provider Reason for Visit Reason Comments COPD Encounter Details Date Type Department Care Team Description 12/10/2018 Office Visit [place] [facility] Eduard Dixon, Chronic bronchitis, obstructive (HCC) (Primary Dx); [address] [facility] Chronic rhinitis ; [place] [address] [address] Chronic maxillary sinusitis [phone] [place] [address] Allergies Active Allergy Reactions Severity Noted Date Comments Bactrim GI Reaction 07/03/2006 NAUSEA Doxycycline GI Reaction 05/08/2017 Ct Dye 06/26/2004 OMNIPAQUE Erythromycin GI Reaction 04/30/2007 GI upset Iodine 04/30/2007 Morphine 04/30/2007 Opioid Analgesics Nausea and Vomiting 07/09/2004 Penicillins Hives 06/26/2004 Reglan Other 11/09/2012 [place] hot Sulfacetamide Sodium Hives 04/30/2007 Tramadol Unknown Reaction 04/30/2007 Ultram documented as of this encounter (statuses as of 12/10/2018) Medications Medication Sig Dispensed Refills Start End Date Status Date cyanocobalamin Take 1,000 mcg 0 Active (VITAMIN B-12) 1000 by mouth DAILY. MCG Oral Tab calcium 1 Tab TWO 60 Tab 0 Active carbonate-vitamin D TIMES DAILY 3 (CALTRATE 600+D) BEFORE MEALS. 600-400 MG-UNIT Oral Tab albuterol 3 mL by 90 Vial 5 Active (PROVENTIL, Inhalation-SVN 6 VENTOLIN) (2.5 route EVERY SIX MG/3ML) 0.083% HOURS NEEDED Inhalation Nebu (cough). Soln Simethicone 125 MG Take 1 Tab by 120 Tab 5 Active Oral Chew Tab mouth EVERY SIX 8 HOURS. Magnesium Take 2 Tabs by 60 Tab 11 Active Cl-Calcium mouth EVERY 8 Carbonate BEDTIME. (SLOW-MAG) 71.5-119 MG Oral Tab EC polyethylene glycol Take 17 g by 510 g Active (MIRALAX) Oral mouth DAILY. 8 Powder ADVAIR HFA 230-21 INHALE 2 PUFFS 1 Inhaler 11 Active MCG/ACT Inhalation TWICE A DAY 8 Aerosol albuterol HFA Take 2 Puffs by 2 Inhaler 3 Active (VENTOLIN HFA) 108 inhalation FOUR 8 (90 Base) MCG/ACT TIMES DAILY Inhalation Aero NEEDED (for Soln sob). Bisacodyl 5 MG Oral Take 2 Tabs by 180 Tab 3 Active Tab EC mouth EVERY 8 BEDTIME. Gabapentin 800 MG take 1 tablet 90 Tab 11 Active Oral Tab by mouth three 9 times a day AMITIZA 24 MCG Oral take 1 capsule 180 Cap 3 Active Cap by mouth twice 9 a day Azithromycin 500 MG take 1 tablet 12 Tab 5 Active Oral by mouth THREE 9 TabIndications: TIMES A WEEK Mucopurulent chronic bronchitis (HCC) loratadine Take 1 Tab by 90 Tab 3 Active (CLARITIN,ALAVERT) mouth DAILY. 9 10 MG Oral Tab amLodipine take 1 tablet 90 Tab 3 Active (NORVASC) 10 MG by mouth once 9 Oral Tab daily DEXILANT 60 MG Oral take 1 capsule 90 Cap 3 Active CAPSULE DELAYED by mouth once 9 RELEASE daily montelukast TAKE 1 TABLET 90 Tab 3 Active (SINGULAIR) 10 MG BY MOUTH ONCE 9 Oral Tab DAILY candesartan TAKE 1 TABLET 90 Tab 3 Active (ATACAND) 8 MG Oral BY MOUTH ONCE 9 Tab DAILY TUDORZA PRESSAIR INHALE 1 PUFF 1 Each 5 Active 400 MCG/ACT BY MOUTH TWICE 9 Inhalation AEROSOL A DAY POWDER, BREATH ACTIVATEDIndication s: Chronic bronchitis, obstructive (HCC) sertraline (ZOLOFT) Take 1 Tab by 0 Active 25 MG Oral mouth DAILY. 9 TabIndications: Depression, unspecified depression type atorvastatin TAKE 1 TABLET 90 Tab 3 Active (LIPITOR) 40 MG BY MOUTH ONCE 9 Oral DAILY TabIndications: Hyperlipidemia fluticasone [place] 2 Sprays 1 Bottle 6 Active (FLONASE) 50 in nose DAILY. 9 MCG/ACT Nasal Suspension Cefdinir (OMNICEF) Take 1 Cap by 20 Cap 2 12/11/19 Discontinued 300 MG Oral Cap mouth TWICE 9 19 (Therapy DAILY. Completed) documented as of this encounter (statuses as of 12/10/2018) Active Problems Problem Noted Date Adhesive capsulitis of left shoulder 07/03/2018 Solar purpura 02/25/2018 History of tobacco use 06/21/2017 Mucopurulent chronic bronchitis 06/04/2017 Essential tremor 06/04/2017 Tic disorder 06/04/2017 Contusion of right foot 06/04/2016 Right foot pain 04/11/2016 Osteoarthritis of right ankle and foot 04/11/2016 Lateral epicondylitis of right elbow 04/11/2016 Esophageal dysfunction 10/18/2015 COLD (chronic obstructive lung disease) 10/18/2015 Traumatic tear of medial meniscus of left knee 07/25/2015 Left knee pain 07/13/2015 Primary osteoarthritis of left knee 05/02/2015 Hand pain, right 03/13/2015 Nondisp fx of proximal phalanx of left ring finger with routine heal 2014 Pain of right hand 03/06/2015 Wrist pain, right 04/26/2013 Knee pain, left 02/17/2013 Overview: Medial meniscal tear on MRI 02/2013 Chronic cough 04/15/2012 Persistent asthma 06/07/2011 Chronic sinusitis 05/21/2011 Allergic rhinitis due to grass and ragweed pollens 04/09/2011 BMI 36.0-36.9,adult 09/17/2010 Overview: This patient's BMI has been calculated and is above average, and BMI management plan is completed. General patient education discussion including: obesity- related excess mortality, weight loss link to reduction of risk factors for cardiac and other diseases, importance of long- term maintenance treatment in weight loss and is managed by Garrett MALDONADO MD . Declines pattern and chain maker consultation. Complex regional pain syndrome 04/23/2010 Overview: Right upper extremity Lung nodule 11/22/2009 Overview: 3 mm on computed tomography scan 2009 and stable in 2010, with no further follow up needed. Essential hypertension, benign 04/03/2007 Pure hypercholesterolemia 04/03/2007 Irritable bowel syndrome 04/03/2007 Esophageal reflux 04/03/2007 Deviated nasal septum 06/17/2006 Chronic bronchitis, obstructive 07/26/2005 Primary hyperparathyroidism 06/22/2004 MARVIN (obstructive sleep apnea) Overview: Patient is on CPAP of 9 cm through [facility] documented as of this encounter (statuses as of 12/10/2018) Resolved Problems Problem Noted Date Resolved Date Essential hypertension 01/06/2015 01/25/2016 Chronic bronchitis 04/15/2012 06/04/2017 Asthma 08/03/2008 06/07/2011 Overview: Positive methacholine study 10/23/2005. PC20 9.99 Disorder of bone and cartilage, unspecified 04/03/2007 05/21/2011 Allergic rhinitis, cause unspecified 04/03/2007 06/14/2008 Chronic ethmoidal sinusitis 06/17/2006 05/21/2011 Hypertrophy of nasal turbinates 06/17/2006 05/21/2011 Cough 09/27/2005 09/28/2009 Chronic frontal sinusitis 09/12/2005 05/21/2011 Chronic maxillary sinusitis 09/12/2005 05/21/2011 Unspecified asthma(493.90) 07/19/2005 06/14/2008 Pulmonary collapse 07/10/2004 05/21/2011 Hyperparathyroidism, unspecified 06/13/2004 05/21/2011 documented as of this encounter (statuses as of 12/10/2018) Immunizations Name Administration Dates Next Due Depo Medrol (80mg) 03/18/2013 Euflexxa (2ml) 2015, 05/23/2015, 05/16/2015, 10/28/2013, 10/22/2013, 10/14/2013 Influenza (IM) Preservative Free 01/19/2013 Influenza (IM) W/Pres 01/03/2012 Influenza Vaccine High Dose 12/31/2017, 01/23/2017, 01/11/2016, 01/25/2015, 12/22/2013 Influenza Vaccine Whole 01/20/2009, 01/18/2008, 01/19/2007, 01/20/2006, 07/12/2005, 02/04/2005, 01/06/2004, 01/19/2003 Influenza Virus Vaccine Pres Free 6-35 01/05/2011, 01/08/2010 Months PNEUMOCOCCAL POLYSACCHARIDE VACCINE 12/13/2011 Pneumococcal Conjugate(13 Valent) 06/13/2014 TDAP Vaccine 08/14/2013, 08/28/2011 ZOSTER (ZOSTAVAX) VACCINE 03/05/2012 documented as of this encounter Social History Tobacco Use Types Packs/Day Years Used Date Former Smoker Cigarettes 0.5 15 Quit: 04/15/1991 Smokeless Tobacco: Never Used Alcohol Use Drinks/Week oz/Week Comments No 0 Standard drinks or equivalent 0.0 Sex Assigned at Date Recorded Not on file Job Start Date Occupation Industry Not on file Not on file Not on file Travel History Travel Start Travel End No recent travel history available. documented as of this encounter Last Filed Vital Signs Vital Sign Reading Time Taken Comments Blood Pressure 118/64 12/10/2018 10:06 AM EDT Pulse 74 12/10/2018 10:06 AM EDT Temperature - - Respiratory Rate 17 12/10/2018 10:06 AM EDT Oxygen Saturation 97% 12/10/2018 10:06 AM EDT on r/a at rest Inhaled Oxygen Concentration - - Weight 70.3 kg (155 lb) 12/10/2018 10:06 AM EDT Height 160 cm (5' 3") 12/10/2018 10:06 AM EDT Body Mass Index 27.46 12/10/2018 10:06 AM EDT documented in this encounter Progress Notes Eduard Dixon MD - 12/10/2018 10:15 AM EDT Name: Kat Justice : 1945 Date of Service: 12/10/2018 Referring Practioner: Noah Maldonado Primary Care Provider: Noah Maldonado History of Present Illness Kat Justice is a 73-y.o. female who presents for a reevaluation of her persistent cough. Since her last visit, the patient has had problem with recurrent sinusitis. She did have a CT of the sinuses at the end of November which showed significant disease in the right maxillary sinus especially as well as polyps on the left. It was read as postsurgical changes but the patient denies any surgeryon her sinuses. She is already on Singulair. Her eosinophil count is normal. As far as her breathing, presently, she is doing well. She is presently on a combination of Advair and Tudorza. She denies any wheezing. She is also on Zithromax 3 times a week. She feels that her condition has improved significantly since she has been on Zithromax. Allergies Allergen Reactions Bactrim GI Reaction NAUSEA Doxycycline GI Reaction Dye [Ct Dye] OMNIPAQUE Erythromycin GI Reaction GI upset Iodine Morphine Opioid Analgesics Nausea and Vomiting Penicillins Hives Reglan Other [place] hot Sulfa [Sulfacetamide Sodium] Hives Tramadol Unknown Reaction Ultram Social History Socioeconomic History Marital status: Spouse name: Not on file Number of children: Not on file Years of education: Not on file Highest education level: Not on file Occupational History Not on file Social Needs Financial resource strain: Not on file Food insecurity: Worry: Not on file Inability: Not on file Transportation needs: Medical: Not on file Non-medical: Not on file Tobacco Use Smoking status: Former Smoker Packs/day: 0.50 Years: 15.00 Pack years: 7.50 Types: Cigarettes Last attempt to quit: 04/15/1991 Years since quittin.6 Smokeless tobacco: Never Used Substance and Sexual Activity Alcohol use: No Alcohol/week: 0.0 standard drinks Drug use: No Sexual activity: Never Lifestyle Physical activity: Days per week: Not on file Minutes per session: Not on file Stress: Not on file Relationships Social connections: Talks on phone: Not on file Gets together: Not on file Attends rastafarian service: Not on file Active member of club or organization: Not on file Attends meetings of clubs or organizations: Not on file Relationship status: Not on file Intimate partner violence: Fear of current or ex partner: Not on file Emotionally abused: Not on file Physically abused: Not on file Forced sexual activity: Not on file Other Topics Concern Not on file Social History Narrative The patient lives in [place] and is and 23-year-old son. There is a cat and dog in the home. She has no personal history of tobacco use, but is exposed to second-hand at home. She is unemployed due to her right upper extremity problems. 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 albuterol HFA (VENTOLIN HFA) 108 (90 Base) MCG/ACT Inhalation Aero Soln Take 2 Puffs by inhalation FOUR TIMES DAILY NEEDED (for sob). AMITIZA 24 MCG Oral Cap take 1 capsule by mouth twice a day amLodipine (NORVASC) 10 MG Oral Tab take 1 tablet by mouth once daily atorvastatin (LIPITOR) 40 MG Oral Tab TAKE 1 TABLET BY MOUTH ONCE DAILY Azithromycin 500 MG Oral Tab take 1 tablet by mouth THREE TIMES A WEEK Bisacodyl 5 MG Oral Tab EC Take 2 Tabs by mouth EVERY BEDTIME. calcium carbonate-vitamin D (CALTRATE 600+D) 600-400 MG-UNIT Oral Tab 1 Tab TWO TIMES DAILY BEFORE MEALS. candesartan (ATACAND) 8 MG Oral Tab TAKE 1 TABLET BY MOUTH ONCE DAILY cyanocobalamin (VITAMIN B-12) 1000 MCG Oral Tab Take 1,000 mcg by mouth DAILY. DEXILANT 60 MG Oral CAPSULE DELAYED RELEASE take 1 capsule by mouth once daily fluticasone (FLONASE) 50 MCG/ACT Nasal Suspension [place] 2 Sprays in nose DAILY. Gabapentin 800 MG Oral Tab take 1 tablet by mouth three times a day loratadine (CLARITIN,ALAVERT) 10 MG Oral Tab Take 1 Tab by mouth DAILY. Magnesium Cl-Calcium Carbonate (SLOW-MAG) 71.5-119 MG Oral Tab EC Take 2 Tabs by mouth EVERY BEDTIME. montelukast (SINGULAIR) 10 MG Oral Tab TAKE 1 TABLET BY MOUTH ONCE DAILY polyethylene glycol (MIRALAX) Oral Powder Take 17 g by mouth DAILY. sertraline (ZOLOFT) 25 MG Oral Tab Take 1 Tab by mouth DAILY. Simethicone 125 MG Oral Chew Tab Take 1 Tab by mouth EVERY SIX HOURS. TUDORZA PRESSAIR 400 MCG/ACT Inhalation AEROSOL POWDER, BREATH ACTIVATED INHALE 1 PUFF BY MOUTH TWICE A DAY No current facility-administered medications for this visit. Past Medical History: Diagnosis Date Actinic keratosis of multiple sites of head and neck Allergic rhinitis due to pollen 04/03/2007 GRASS, RAGWEED Arthritis Asthma Chronic sinusitis Disorder of bone and cartilage, unspecified 04/03/2007 Esophageal reflux 04/03/2007 Headache(784.0) Irritable bowel syndrome 04/03/2007 MARVIN (obstructive sleep apnea) Dr. Larry MARVIN (obstructive sleep apnea) Pure hypercholesterolemia 04/03/2007 RSD (reflex sympathetic dystrophy) RSD upper limb right hand Unspecified essential hypertension 04/03/2007 Unspecified hypertensive heart disease Vasculitis (HCC) 09/15 Past Surgical History: Procedure Laterality Date CARPAL TUNNEL RELEASE 1995 also right ulnar nerve CATARACT EXTRACTION NEC 01/10/[address] Mason [place] REMOVE TONSILS/ADENOIDS,12+ Y/O [place] THYROIDECTOMY,MALIG,LTD NECK SURG SINUS ASPIRAT/LAVAGE NOS 2006 SINUSOTOMY NOS TONSILLECTOMY age 8 Family History Problem Relation Age of Onset Cancer Mother stomach Diabetes Mother Asthma Father emphysema (smoker) REVIEW OF SYSTEMS: A comprehensive review of systems was negative except for as noted in the history of present illness/subjective. PHYSICAL EXAMINATION: VITALS: Vitals: 12/10/18 1006 BP: 118/64 BP Location: Left arm Patient Position: Sitting Pulse: 74 Resp: 17 SpO2: 97% Weight: 155 lb (70.3 kg) Height: 5' 3" (1.6 m) GENERAL: alert, oriented, no acute distress HEENT: sclera normal, anicteric, mucous membrane moist, conjunctivitis pink and pale, normal dentition, pupils equal, round, reactive to light, extraocular movement intact, posterior pharynx: crowded, tongue midline , dry mucous membranes. NECK: no mass, no adenopathy, no thyromegaly, supple, thyroid: not enlarged , symmetric, no tenderness/mass/nodules, no jugular venous distention. LUNGS: diminished breath sounds bilateral. HEART: regular rhythm, no murmurs, no gallops, no rubs S1: normal S2: normal. ABDOMEN: soft, non tender, without masses or organomegaly, nondistended, normal bowel sounds, without guarding, without rebound. EXTREMITIES: no clubbing, cyanosis, or edema. NEUROLOGICAL: alert and oriented x3 gait: normal. Impression/Plan: 1. Recurrent bronchitis. Under control with Zithromax 3 times a week. I would recommend with the present plan as well as a combination of Advair and Tudorza. 2. Chronic sinusitis. I told the patient to start using Flonase once a day. I do feel that she would benefit from seeing learning technologist. I will also measure a Rast test to see if the patient has any underlying allergies. Her immunoglobulin levels were measured in the past and werenormal. 3. Immunization. The patient will get the flu vaccination at the end of December. The patient will come back for follow-up in the spring Author: Eduard Dixon MD 10:29 12/10/2018 documented in this encounter Plan of Treatment Date Type Specialty Care Team Description 12/29/2018 Scan Only Encounter Historical, Provider 02/23/2019 Office Visit Hematology and Jerome Capps, Oncology PA-C [address] [place] [address] 03/03/2019 Office Visit Internal Medicine Noah Maldonado MD [address] [place] [address] 06/10/2019 Office Visit Pulmonary Eduard Dixon MD [address] [place] [address] Name Type Priority Associated Diagnoses Order Schedule [facility] PANEL Lab Routine Chronic rhinitis Expected: 12/10/2018 Chronic bronchitis, (Approximate), Expires: obstructive (HCC) 12/11/2019 Health Maintenance Due Date Last Done Comments ZOSTER IMMUNIZATION SERIES 04/30/2012 03/05/2012 (2 of 3) MEDICARE ANNUAL WELLNESS 12/19/2016 12/20/2015 (Previously VISIT completed), 09/13/2014 (Previously completed) INFLUENZA VACCINE (#1) 2018 12/31/2017, 01/23/2017, 01/11/2016, Additional history exists DEPRESSION SCREENING 02/24/2019 02/24/2018, 02/24/2018 MAMMOGRAM (SCREENING) 08/06/2019 08/05/2018, 08/05/2018, 07/31/2017, Additional history exists COLONOSCOPY SCREENING 09/30/2019 09/29/2014, 01/01/2012, 06/20/2005 FALL RISK ASSESSMENT 11/05/2019 11/04/2018, 11/04/2018 LIPID DISORDER SCREENING 12/02/2019 12/01/2018, 07/28/2018, 02/24/2018, Additional history exists OSTEOPOROSIS SCREENING 06/02/2022 06/02/2012 (Previously completed), 09/25/2011 HPV IMMUNIZATION SERIES Aged Out No longer eligible based on patient's age to complete this topic MENINGOCOCCAL VACCINE IMM Aged Out No longer eligible based on patient's age to complete this topic documented as of this encounter Goals Goal Patient Goal Associated Recent Patient-Stated? Author Type Problems Progress Blood Pressure Blood Pressure Essential 118/64 No Skezas, < 140/90 hypertension, (12/10/2018 MD Noah benign 10:06 AM EDT) Note: Hypertension Care Plan Based on the patient's clinical history and according to JNC 8 guidelines target blood pressure goal is less than 140/90. Based on the patient's last blood pressure of BP: 176/80 mmHg the patient is at above goal. As your provider, it is important that I advise you regarding: your current medications and help you with any challenges you may face taking your medications as directed (ex. instructions, cost, side effects, and interactions). lifestyle changes: exercise, diet, dietary sodium reduction and medication compliance your clinical goals and how you can achieve success: exercise plan and diet improvements medication management: adjusted medications as appropriate patient education/self-management tools provided: Current self-management tools adequate To successfully manage my Hypertension I will: monitor my blood pressure daily, understanding that my goal is less than 140/ 90 per my healthcare provider's recommendation. I will schedule an appointment with my provider if consistent abnormal readings greater than 160/100. take medications every day as prescribed by my healthcare provider and if unable to take them I will discuss with my provider. monitor for symptoms of chest pain, chest tightness/pressure, irregular heartbeat, persistent dizziness, radiating arm pain, and neck or jaw pain. If any of these symptoms are noticed I will seek medical attention immediately by calling 911 exercise/walk 30 minutes 5 day(s) per week. If I experience chest pain, chest tightness, or shortness of breath, I will seek medical attention immediately. follow a diet rich in fruits, vegetables, and low-fat dairy products with reduced content of saturated & total fat. I will reduce my sodium intake daily. An example is the DASH diet. To obtain more information please refer to the DASH Eating Plan listed in Educational Resources. record my blood pressure results. [employer] is safe and secure way for you to do this in your medical record online. try to obtain an ideal body weight. My recent weight was Weight: 163 lb ( 73.936 kg). My weight loss goal for my next office visit is 163. limit alcohol consumption. For men two drinks per day and women one drink per day. if currently smoking, will discuss how to quit smoking with my healthcare provider and work towards quitting. Educational Resources: National Heart, Lung, & Blood Y[place]ell http://nhlbi.nih.gov/hbp/index.html The DASH Diet Eating Plan http://www.nhlbi.nih.gov/health/health-topics/ topics/dash/ Academy of Nutrition & DIetetics http://eatright.org National Smoking Cessation Site http://smokefree.gov Blood Pressure < Blood Pressure 118/64 (12/10/2018 10:06 No Noah Maldonado MD 140/90 AM EDT) Note: This is an individualized treatment (blood pressure) goal for Kat Justice: Displayed above (on the left) is your goal for blood pressure control. Your most recent blood pressure is also shown above, on the right. You should try to achieve blood pressures that are lower than your goal listed above (on the left). Depression screen Depression 8 (02/24/2018 1:21 PM Ernesto Apple, (PHQ-9) total score < 5 EST) Note: This is an individualized treatment (depression) goal for Kat Justice: Displayed above is your goal for a depression screening (PHQ-9) score that would indicate good control of your depression. Keep immunizations current Lifestyle No Noah Maldonado MD Note: This is an individualized lifestyle goal for Kat Justice: Please be sure to keep up-to-date on recommended immunizations. For example, this would include a yearly influenza vaccine. Immunization status can be seen by looking at the Health Maintenance sections of your [facility], Plan of Care, and any After Visit Summaries. Keep a regular sleep schedule Lifestyle Ernesto Apple MD Note: This is an individualized lifestyle goal for Kat Justice: Please maintain a regular sleep schedule. This may help with some symptoms of depression. Take all prescribed medications as directed Self-management Noah Melissa MD Note: This is an individualized self-management goal for Kat Justice: Please take all prescribed medications as directed. 1. Do not skip doses. If you cannot afford your medications, talk with your doctor. 2. Use a pill reminder system such as a pill box if needed. Your pharmacist can help you with this. 3. Contact your Pharmacy 5 days before your medication runs out. If you cannot take your medications for any reasons, talk with your doctor. 4. Please bring all of your medication bottles and inhalers (or a list of all your medications/inhalers) with you to every visit. Potential barriers to meeting all of your care plan goals will continue to be addressed on an ongoing basis. documented as of this encounter Results Not on filedocumented in this encounter Visit Diagnoses Diagnosis Chronic bronchitis, obstructive (HCC) - Primary Obstructive chronic bronchitis without exacerbation Chronic rhinitis Chronic rhinitis Chronic maxillary sinusitis documented in this encounter Insurance Payer Benefit Plan / Subscriber ID Effective Dates Phone Address Type Group MEDICARE MEDICARE PART A & xxxxxxxxxxx 1998-Present Medicare B [employer] xxxxxxxxxxxx 2015-Present [employer] Guarantor Name Account Type Relation to Date of Phone Billing Patient Address Kat Justice Personal/Family 1945 [address] (Home) [place], [place] [phone] [id number] (Work) documented as of this encounter
--- OUTSIDE RECORDS SUMMARY | 2019-02-01 12:41 | XMS REPORT | Summary of Care ---
:1945 Author Organization [facility] Address [address] [place] [address] Care Team Providers Name Role Phone Noah Poe Primary Care Provider Reason for Visit Reason Comments Pre-Op Exam surgery 01/29/19 Encounter Details Date Type Department Care Team Description 01/19/2019 Office Visit [place] Anne Keith, Pre-op evaluation ( Primary Dx); Practice [employer] Other polyp of sinus [address] [place] [address] [place] [address] [phone] Allergies Active Allergy Reactions Severity Noted Date Comments Bactrim GI Reaction 07/03/2006 NAUSEA Doxycycline GI Reaction 05/08/2017 Ct Dye 06/26/2004 OMNIPAQUE Erythromycin GI Reaction 04/30/2007 GI upset Iodine 04/30/2007 Morphine 04/30/2007 Opioid Analgesics Nausea and Vomiting 07/09/2004 Penicillins Hives 06/26/2004 Reglan Other 11/09/2012 [place] hot Sulfacetamide Sodium Hives 04/30/2007 Tramadol Unknown Reaction 04/30/2007 Ultram documented as of this encounter (statuses as of 01/21/2019) Medications Medication Sig Dispensed Refills Start End [...] glycol Take 17 g by 510 g 11 Active (MIRALAX) Oral mouth DAILY. 8 Powder albuterol HFA Take 2 Puffs by 2 [...] DELAYED by mouth once 9 RELEASE daily TUDORZA PRESSAIR INHALE 1 PUFF 1 Each [...] ONCE 9 Oral DAILY TabIndications: Hyperlipidemia fluticasone Wharton 2 Sprays 1 Bottle 6 Active (FLONASE) 50 in nose DAILY. 9 MCG/ACT Nasal Suspension ADVAIR HFA 230-21 INHALE 2 PUFFS 1 Inhaler 11 Active MCG/ACT Inhalation BY MOUTH TWICE 9 Aerosol DAILY Cefixime 400 MG Take 400 mg by 10 Cap 0 Active Oral Cap mouth DAILY. 9 Clindamycin HCl 300 Take 1 Cap by 30 Cap 0 Active MG Oral Cap mouth THREE 9 TIMES DAILY. montelukast TAKE 1 TABLET 90 Tab 3 Active (SINGULAIR) 10 MG BY MOUTH ONCE 9 Oral Tab DAILY candesartan TAKE 1 TABLET 90 Tab 3 01/20/20 Discontinued (ATACAND) 8 MG Oral BY MOUTH ONCE 9 19 (Reorder) Tab DAILY documented as of this encounter (statuses as of 01/21/2019) Active Problems Problem Noted Date Adhesive capsulitis [...] weight loss and is managed by Garrett POE MD . Declines brass pourer consultation. Complex regional pain syndrome 04/23/2010 Overview: [...] as of this encounter (statuses as of 01/21/2019) Resolved Problems Problem Noted Date Resolved Date [...] as of this encounter (statuses as of 01/21/2019) Immunizations Name Administration Dates Next Due Depo Medrol (80mg) 03/18/2013 Euflexxa (2ml) 2015, 05/23/2015, 05/16/2015, 10/28/2013, 10/22/2013, 10/14/2013 Influenza (IM) Preservative Free 01/19/2013 Influenza (IM) W/Pres 01/03/2012 Influenza Vaccine 65 Yrs + 01/19/2019 Influenza Vaccine High Dose 12/31/2017, 01/23/2017, 01/11/2016, [...] Sign Reading Time Taken Comments Blood Pressure 126/66 01/19/2019 10:28 AM EDT Pulse 84 01/19/2019 10:04 AM EDT Temperature - - Respiratory Rate - - Oxygen Saturation 98% 01/19/2019 10:04 AM EDT Inhaled Oxygen Concentration - - Weight 73.9 kg (163 lb) 01/19/2019 10:04 AM EDT Height 157.5 cm (5' 2") 01/19/2019 10:04 AM EDT Body Mass Index 29.81 01/19/2019 10:04 AM EDT documented in this encounter Patient Instructions Patient InstructionsAnne Lal FNP - 01/19/2019 10:00 AM EDTPre op testing today No food or drink morning of surgery - take only Norvasc and Atacand with sip of water in AM documented in this encounter Progress Notes Noah Poe MD - 01/19/2019 10:00 AM EDTResults will be reviewed with the patient at time of upcoming visit Anne warren FNP - 01/19/2019 10:00 AM EDT PATIENT: Kat Justice : 1945 DATE OF SERVICE: 01/19/2019 Subjective SUBJECTIVE: Kat Justice is a 73-y.o. female who presents to the office today for a preoperative consultation at the request of Dr Rico, who will perform a right maxillary antrostomy and removal of polyp under general anesthesia on 01/29/19. Patient complains of cardiac symptoms: Light headed at times, no LOC. Patient denies cardiac symptoms: chest pain, dyspnea, palpitations. Past history of pulmonary embolism/deep vein thrombosis: no. There is a history of bleeding complications: recent work up for bruising negative. Past history of anesthetic problem: no. Exercise capacity: Can you walk 2 blocks on level ground, or carry 2 bags of groceries up 2 flights of stairs? Yes Count the number of risk factors in the revised Sue cardiac risk index. ( RCRI): High risk procedure: eg vascular surgery, any open intraperitoneal or intrathoracic History of ischemic heart disease (history of NH or a positive exercise test, current complaint of chest pain considered to be secondary to myocardial ischemia, use of nitrate therapy, or ECG with pathological Q waves; do not count prior coronary revascularization procedure unless one of the other criteria for ischemic heart disease is present) Hx of CHF, either systolic or diastolic History of cerebrovascular disease (TIA or Stroke) Diabetes mellitus requiring treatment with insulin Preoperative serum creatinine >2.0 mg/dl The risk of cardiac , nonfatal myocardial infarction, and nonfatal cardiac arrest according to the number of above risk predictors is estimated to be: No risk factors - 0.4 percent (95% CI: 0.1 - 0.8) Screening for sleep apnea: Stop-Bang Snoring: Do you snore loudly (louder than talking or heard through closed doors )? Tired: Do you often feel tired, fatigued, or sleepy during the day? Observed: Has anyone observed you stop breathing during your sleep? Pressure: Do you have or are you being treated for high blood pressure? BMI: >35 kg/m2? Age: >50? Neck circumference: >40 cm? Gender: Male? "Low risk" for MARVIN: <3 questions "yes" Screening for Alzheimer's 1. During the past 12 months, have you experienced confusion or memory loss that is happening more often or is getting worse? No 2. During the past 7 days, did you need help with others to perform everyday activities such as eating, getting dressed, grooming, bathing, walking, or using the toilet? No 3. During the past 7 days, did you need help from others to take care of things such as laundry and housekeeping, banking, shopping, using the telephone, food preparation, transportation, or taking your own medications? No Current active problems are: Patient Active Problem List Diagnosis Date Noted Adhesive capsulitis of left shoulder 07/03/2018 Solar purpura ([facility]) 02/25/2018 History of tobacco use 06/21/2017 Mucopurulent chronic bronchitis ([facility]) 06/04/2017 Essential tremor 06/04/2017 Tic disorder 06/04/2017 Contusion of right foot 06/04/2016 Right foot pain 04/11/2016 Osteoarthritis of right ankle and foot 04/11/2016 Lateral epicondylitis of right elbow 04/11/2016 Esophageal dysfunction 10/18/2015 COLD (chronic obstructive lung disease) ([facility]) 10/18/2015 Traumatic tear of medial meniscus of left knee 07/25/2015 Left knee pain 07/13/2015 Primary osteoarthritis of left knee 05/02/2015 Hand pain, right 03/13/2015 Nondisp fx of proximal phalanx of left ring finger with routine heal 10/2014 Pain of right hand 03/06/2015 Wrist pain, right 04/26/2013 Knee pain, left 02/17/2013 Medial meniscal tear on MRI 02/2013 Chronic cough 04/15/2012 Persistent asthma 06/07/2011 Chronic sinusitis 05/21/2011 Allergic rhinitis due to grass and ragweed pollens 04/09/2011 BMI 36.0-36.9,adult 09/17/2010 This patient's BMI has been calculated and is above average, and BMI management plan is completed. General patient education discussion including: obesity-related excess mortality, weight loss linkto reduction of risk factors for cardiac and other diseases, importance of long-term maintenance treatment in weight loss and is managed by Garrett POE MD . Declines brass pourer consultation. MARVIN (obstructive sleep apnea) Patient is on CPAP of 9 cm through [employer] Complex regional pain syndrome 04/23/2010 Right upper extremity Lung nodule 11/22/2009 3 mm on computed tomography scan 2009 and stable in 2010, with no further follow up needed. Essential hypertension, benign 04/03/2007 Pure hypercholesterolemia 04/03/2007 Irritable bowel syndrome 04/03/2007 Esophageal reflux 04/03/2007 Deviated nasal septum 06/17/2006 Chronic bronchitis, obstructive (HCC) 07/26/2005 Primary hyperparathyroidism (HCC) 06/22/2004 Past Medical History: Diagnosis Date Actinic keratosis [...] Unspecified hypertensive heart disease Vasculitis (HCC) 09/15 Family History Problem Relation Age of Onset Cancer Mother stomach Diabetes Mother Asthma Father emphysema (smoker) Current Outpatient Medications Medication Sig ADVAIR HFA 230-21 MCG/ACT Inhalation Aerosol INHALE 2 PUFFS BY MOUTH TWICE DAILY albuterol (PROVENTIL, VENTOLIN) (2.5 MG/3ML) 0.083% Inhalation [...] TAKE 1 TABLET BY MOUTH ONCE DAILY Cefixime 400 MG Oral Cap Take 400 mg by mouth DAILY. Clindamycin HCl 300 MG Oral Cap Take 1 Cap by mouth THREE TIMES DAILY. cyanocobalamin (VITAMIN B-12) 1000 MCG Oral Tab Take 1,000 mcg by mouth DAILY. DEXILANT 60 MG Oral CAPSULE DELAYED RELEASE take 1 capsule by mouth once daily fluticasone (FLONASE) 50 MCG/ACT Nasal Suspension Wharton 2 Sprays in nose DAILY. Gabapentin 800 [...] No current facility-administered medications for this visit. Allergies Allergen Reactions Bactrim GI Reaction NAUSEA Doxycycline GI Reaction Dye [Ct Dye] OMNIPAQUE Erythromycin GI Reaction GI upset Iodine Morphine Opioid Analgesics Nausea and Vomiting Penicillins Hives Reglan Other [place] hot Sulfa [Sulfacetamide Sodium] Hives Tramadol Unknown [...] Last attempt to quit: 04/15/1991 Years since quittin.7 Smokeless tobacco: Never Used Substance and Sexual Activity Alcohol use: No Alcohol/week: 0.0 standard drinks Drug use: No Sexual activity: Never Lifestyle Physical activity: Days per week: Not on file Minutes per session: Not on file Stress: Not on file Relationships Social connections: Talks on phone: Not on file Gets together: Not on file Attends congregational service: Not on file Active member of [...] Social History Narrative The patient lives in [place] and is and 23-year-old son. There is a cat and dog in the home. She has no personal history of tobacco use, but is exposed to second-hand at home. She is unemployed due to her right upper extremity problems. Patient was previously an catering administrative assistant prior to disability REVIEW OF SYSTEMS: RESPIRATORY: Nasal congestion. The patient has dentures: No The patient has hearing aids: No Objective OBJECTIVE: There were no vitals taken for this visit. GENERAL: alert, cooperative, mildly obese. SKIN: purpura / ecchymosis noted on upper extremities. EYES: conjunctivae/corneas clear. Pupils equal, round, reactive to light. Equal ocular movements intact. Fundi benign.. MOUTH: moist mucous membranes, no lesions. Mallampati score: 2 LYMPH NODES: cervical, supraclavicular, and axillary nodes normal.. LUNGS: clear to auscultation bilaterally. CXR - no acute finding HEART: regular rate and rhythm.EKG completed ABDOMEN: soft, non-tender. Bowel sounds normal. No masses, no organomegaly. FLANK TENDERNESS: absent. EXTREMITIES: no calf tenderness. NEUROLOGIC: alert, oriented x3. Gait normal. Reflexes and motor strength normal and symmetric. Cranial nerves 2-12 and sensation grossly intact.. PSYCHIATRIC: anxious. ASSESSMENT: No contraindications to planned surgery 1. Pre-op evaluation 2. Other polyp of sinus Clinical predictors: The RCRI score is: 0 Respiratory risk: The patient has pre-existing risks of asthma The risk of airway problems is low based on the mallampati score and the Stop-bang score. Anticoagulation: The patient is not on anti-platelet agents. Plan PLAN: General preoperative instructions for patient. Proceed with surgery as planned No food or liquids the morning of surgery. Call surgeon if develop respiratory illness, fever, or other illness. Take the following medications the morning of surgery with a sip of water Norvasc and Atacand Letter sent to requesting surgeon listed above. Written preoperative instructions given. Author: VALENTINE Fields 01/19/2019 10:00 documented in this encounter Plan of Treatment Date Type Specialty Care Team Description 03/03/2019 Office Visit Internal Medicine Noah Poe MD [address] [place] [id number] 06/10/2019 Office Visit Pulmonary Eduard Dixon MD [address] [place] [id number] [phone] Name Type Priority Associated Diagnoses Order Schedule AMBULATORY 12 LEAD EKG EKG Routine Pre-op evaluation Ordered: 01/19/2019 (GLOBAL) Health Maintenance Due Date Last Done Comments ZOSTER IMMUNIZATION SERIES 04/30/2012 03/05/2012 (2 of 3) MEDICARE ANNUAL WELLNESS 12/19/2016 12/20/2015 (Previously VISIT completed), 09/13/2014 (Previously completed) DEPRESSION SCREENING 02/24/2019 02/24/2018, 02/24/2018 MAMMOGRAM (SCREENING) 08/06/2019 08/05/2018, 08/05/2018, 07/31/2017, Additional history exists COLONOSCOPY SCREENING 09/30/2019 09/29/2014, 01/01/2012, 06/20/2005 FALL RISK ASSESSMENT 11/05/2019 11/04/2018, 11/04/2018 LIPID DISORDER SCREENING 12/02/2019 12/01/2018, 07/28/2018, 02/24/2018, Additional history exists OSTEOPOROSIS SCREENING 06/02/2022 06/02/2012 (Previously completed), 09/25/2011 INFLUENZA VACCINE Completed 01/19/2019, 12/31/2017, 01/23/2017, Additional history exists HPV IMMUNIZATION SERIES Aged Out No longer eligible based on patient's age to complete this topic MENINGOCOCCAL VACCINE IMM Aged Out No longer eligible based on patient's age to complete this topic documented as of this encounter Goals Goal Patient Goal Associated Recent Patient-Stated? Author Type Problems Progress Blood Pressure Blood Pressure Essential 126/66 No Joel, < 140/90 hypertension, (01/19/2019 MD Noah benign 10:28 AM EDT) Note: Hypertension Care Plan Based [...] Educational Resources. record my blood pressure results. Amye is safe and secure way for you [...] Educational Resources: National Heart, Lung, & Blood [place] http://nhlbi.nih.gov/hbp/index.html The DASH Diet Eating Plan http://www.nhlbi.nih.gov/health/health-topics/ topics/dash/ Academy of Nutrition & DIetetics http://eatright.org National Smoking Cessation Site http://smokefree.gov Blood Pressure < Blood Pressure 126/66 (01/19/2019 10:28 Noah Melissa MD 140/90 AM EDT) Note: This is [...] of your depression. Keep immunizations current Lifestyle Noah Melissa MD Note: This is an individualized lifestyle [...] ongoing basis. documented as of this encounter Procedures Procedure Name Priority Date/Time Associated Comments Diagnosis CBC WITH DIFFERENTIAL Routine 01/19/2019 10:45 Pre-op evaluation Results for this AM EDT procedure are in the results section. COMPREHENSIVE Routine 01/19/2019 10:45 Pre-op evaluation Results for this METABOLIC PANEL AM EDT procedure are in the results section. documented in this encounter Results COMPREHENSIVE METABOLIC PANEL (01/19/2019 10:45 AM EDT) Sodium 141 134 - 145 mmol/L [facility] Potassium 3.6 3.5 - 5.1 mmol/L [facility] Chloride 109 (H) 98 - 107 mmol/L [facility] CO2 25 22 - 30 mmol/L [facility] Calcium 8.8 8.3 - 10.1 mg/dl [facility] Albumin 3.6 3.5 - 5.0 g/dl [facility] BUN 17 7 - 17 mg/dl [facility] Creatinine 0.7 0.7 - 1.2 mg/dl [facility] Glucose 120 (H) 70 - 99 mg/dl [facility] Total Protein 6.7 6.3 - 8.2 g/dl [facility] Total Bilirubin 1.0 0.0 - 1.1 MG/DL [facility] AST 22 15 - 46 U/L [facility] ALT 17 9 - 52 U/L [facility] Alkaline 92 40 - 150 U/L [facility] Phosphatase [facility] eGFR >60 See Interpretation [facility] Comment: Below ml/min/1.73ml GROUP Estimated GFR Interpretation: Sq LABORATORY Above 60ml/min/1.73m2 = Normal Renal Function 30-59 ml/min/1.73m2 = Stage 3 Chronic Kidney Disease 15-29 ml/min/1.73m2 = Stage 4 Chronic Kidney Disease Less than 15 ml/min/1.73m2 = Stage 5 Chronic Kidney Disease The GFR value is calculated using the Modification of Diet in Renal Disease ( MDRD) Study Equation which can be found at: https://www.kidney.org/content/tknw-lqzac-orccdxdd BUN/Creatinine 24 (H) 6 - 22 RATIO [facility] GROUP LABORATORY Anion Gap 7 3 - 11 mmol/L [facility] A/G Ratio 1.2 0.8 - 2.0 ratio [facility] Specimen Blood - Blood specimen (specimen) Performing Organization Address City/State/Zipcode Phone Number [facility] [address] [place] [address] CBC WITH DIFFERENTIAL (01/19/2019 10:45 AM EDT) WBC Count 6.33 3.98 - 10.04 K/uL [facility] RBC Count 4.65 3.93 - 5.22 M/UL [facility] Hemoglobin 13.5 11.2 - 15.7 g/dL [facility] Hematocrit 43.4 34.1 - 44.9 % [facility] MCV 93.3 79.4 - 94.8 FL [facility] MCH 29.0 25.6 - 32.2 PG [facility] MCHC 31.1 (L) 32.2 - 35.5 g/dL [facility] Platelet Count 202 182 - 369 K/uL [facility] MPV 10.6 9.4 - 12.3 FL [facility] RDW 13.0 11.7 - 14.4 % [facility] Neutrophil % 57.0 34.0 - 71.1 % [facility] Lymphocyte % 29.9 19.3 - 51.7 % [facility] Monocyte % 8.5 4.7 - 12.5 % [facility] Eosinophil % 3.9 0.7 - 5.8 % [facility] Basophil % 0.5 0.1 - 1.2 % [facility] nRBC % 0.0 0.0 - 0.2 % [facility] Neutrophil # 3.61 1.56 - 6.13 K/UL [facility] Lymphocyte # 1.89 1.18 - 3.74 K/UL [facility] Monocyte # 0.54 0.24 - 0.86 K/UL [facility] Eosinophil # 0.25 0.04 - 0.36 K/UL [facility] Basophil # 0.03 0.01 - 0.08 K/UL [facility] Immature Gran % 0.2 0.0 - 0.4 % [facility] Immature Gran # 0.01 0.00 - 0.03 K/uL [facility] NRBC # 0.00 0.00 - 0.12 K/uL [facility] Specimen Blood - Blood specimen (specimen) Performing Organization Address City/State/Zipcode Phone Number [facility] [address] [place] [address] [phone] XR CHEST 2 VIEW PA AND LATERAL (STANDARD) (01/19/2019 10:39 AM EDT) Specimen Impressions Performed At No acute findings. Chronic linear atelectasis or scarring in the bases similar to prior. Signed by Óscar Cavazos on 01/21/2019 12:45 AM Narrative Performed At Procedure(s): XR CHEST 2 VIEW PA AND LATERAL (STANDARD) Date of service: 01/19/2019 10:32 AM Provided clinical information: 73 years, Female, "pre op" Procedure and materials: Standard protocol. Comparison studies: 09/22/2016 Observations: Chronic linear densities in the lung bases. Lungs are otherwise clear. No pneumothorax or effusion. Cardiac silhouette is normal. No acute osseous findings. Procedure Note Interface, Rad Results - 01/21/2019 12:47 AM EDT Procedure(s): XR CHEST 2 VIEW PA AND LATERAL (STANDARD) Date of service: 01/19/2019 10:32 AM Provided clinical information: 73 years, Female, "pre op" Procedure and materials: Standard protocol. Comparison studies: 09/22/2016 Observations: Chronic linear densities in the lung bases. Lungs are otherwise clear. No pneumothorax or effusion. Cardiac silhouette is normal. No acute osseous findings. IMPRESSION No acute findings. Chronic linear atelectasis or scarring in the bases similar to prior. Signed by Óscar Cavazos on 01/21/2019 12:45 AM documented in this encounter Visit Diagnoses Diagnosis Pre-op evaluation - Primary Preoperative examination, unspecified Other polyp of sinus documented in this encounter Insurance Payer Benefit Plan / Subscriber ID Effective Dates Phone Address Type Group MEDICARE MEDICARE PART A & xxxxxxxxxxx 1998-Present Medicare B [employer] xxxxxxxxxxxx 2015-Present [employer] Guarant[employer] Name Account Type Relation to Date of Phone Billing Patient Address Kat Justice Personal/Family 1945 [address] (Home) [place], [place] [phone] (Work) documented as of this encounter
--- NOTE | 2019-02-01 12:51 | ED ---
Syncope/Near Syncope - HPI Summary HPI Summary: This patient is a 73 year old female presenting to [facility] with a chief complaint of syncope. The patient was at the ENT office today and experienced 2 syncopal episodes along with several episodes of nausea and vomiting. She recently had outpatient surgery last week to remove a polyp and she was under general anesthesia. She states she was feeling fatigue, nasal drainage s/p surgery. She went to see the ENT today because she was feeling pressure in her face. She currently reports lightheadedness. She states she had breakfast this morning. - History Of Current Complaint Time Seen by Provider: 02/01/19 12:44 Hx Obtained From: Patient Onset/Duration: Lasting Minutes Associated Signs And Symptoms: Lightheadedness - Allergies/Home Medications Allergies/Adverse Reactions: Allergies Allergy/AdvReac Type Severity Reaction Status Date / Time doxycycline Allergy Intermediate Nausea Verified 02/01/19 12:52 erythromycin base Allergy Intermediate GI Upset Verified 02/01/19 12:52 iodine Allergy Intermediate Hives Verified 02/01/19 12:52 latex Allergy Intermediate redness Verified 02/01/19 12:52 metoclopramide [From Reglan] Allergy Intermediate Anxiety Verified 02/01/19 12: 52 Sulfa (Sulfonamide Allergy Intermediate Hives Verified 02/01/19 12:52 Antibiotics) morphine Allergy Nausea Verified 02/01/19 12:52 Penicillins Allergy Hives Verified 02/01/19 12:52 tramadol Allergy Nausea Verified 02/01/19 12:52 contrast dye Allergy Intermediate Hives Uncoded 02/01/19 12:52 BANDAID Allergy REDNESS, Uncoded 02/01/19 12:52 LATEX Home Medications: Home Medications Azithromycin TAB* [Zithromax TAB (Z-CHRISSY) 250 mg #6 tabs] 250 mg PO .3 X/WEEK [History Confirmed 02/01/19] PMH/Surg Hx/FS Hx/Imm Hx Endocrine/Hematology History: Reports: Hx Thyroid Disease - parathyroidectomy - 1997 Denies: Hx Anticoagulant Therapy, Hx Diabetes Cardiovascular History: Reports: Hx Hypercholesterolemia, Hx Hypertension - on meds Denies: Hx Congestive Heart Failure, Hx Pacemaker/ICD, Other Cardiovascular Problems/Disorders - hyperlipidemia Respiratory History: Reports: Hx Asthma - inhalers / DAILY MED, Hx Chronic Bronchitis, Hx Sleep Apnea - NO MACHINE, Other Respiratory Problems/Disorders - COPD Denies: Hx Chronic Obstructive Pulmonary Disease (COPD), Hx Lung Cancer, Hx Pneumonia, Hx Pulmonary Embolism GI History: Reports: Hx Gastroesophageal Reflux Disease, Hx Hiatal Hernia, Hx Irritable Bowel, Other GI Disorders - reports constipation issues Denies: Hx Gall Bladder Disease, Hx Gastrointestinal Bleed, Hx Ulcer, Hx Urosepsis History: Denies: Hx Kidney Stones, Hx Renal Disease Musculoskeletal History: Reports: Hx Arthritis, Hx Tendonitis - LEFT KNEE Denies: Other Musculoskeletal History Sensory History: Reports: Hx Cataracts, Hx Contacts or Glasses - GLASSES Denies: Hx Deafness, Hx Hearing Aid Opthamlomology History: Reports: Hx Cataracts, Hx Contacts or Glasses - GLASSES Neurological History: Denies: Hx Dementia, Hx Migraine, Hx Seizures, Hx Transient Ischemic Attacks (TIA), Other Neuro Impairments/Disorders Psychiatric History: Reports: Hx Anxiety, Hx Depression Denies: Hx Panic Disorder, Hx Schizophrenia, Hx Bipolar Disorder - Cancer History Hx Chemotherapy: No Hx Radiation Therapy: No - Surgical History Surgery Procedure, Year, and Place: 1995 RIGHT CARPAL TUNNEL, ULNAR NERVE SURGERY, [facility] [place]. 1997 PARATHYROIDECTOMY, [facility]. 1989 SINUS SURGERIES, [facility]. 2010 LEFT FOOT SURGERY TO REMOVE MOLE ON SECOND TOE, [facility] [place]. [place] [facility] [place] Anesthesia Reactions: Yes - ? REACTION TO MORPHINE, UNKNOW - Immunization History Date of Tetanus Vaccine: unknown per pt Infectious Disease History: Denies: Traveled Outside the [place] in Last 30 Days - Family History Known Family History: Positive: Cardiac Disease, Hypertension - Social History Alcohol Use: None Hx Substance Use: No Substance Use Type: Reports: None Hx Tobacco Use: Yes - not currently Smoking Status (MU): Former Smoker Type: Cigarettes Amount Used/How Often: 1/2 pack/day Length of Time of Smoking/Using Tobacco: 21 years Have You Smoked in the Last Year: No Review of Systems Positive: Fatigue Positive: Nasal Discharge, Other - Facial pressure Positive: Vomiting, Nausea Neurological: Other - Lightheadedness Positive: Syncope All Other Systems Reviewed And Are Negative: Yes Physical Exam - Summary Physical Exam Summary: Appearance: Well-appearing, Well-nourished, lying in bed comfortably Skin: Warm, dry, no obvious rash Eyes: sclera anicteric, no conjunctival pallor ENT: mucous membranes moist, pharynx appears normal Neck: Supple, nontender Respiratory: Clear to auscultation, no signs of respiratory distress Cardiovascular: Normal S1, S2. No murmurs. Normal distal pulses in tibial and radial bilaterally. Abdomen: Soft, nontender, normal active bowel sounds present Musculoskeletal: Normal, Strength/ROM Intact Neurological: A&Ox3, awake and alert, mentation is normal, speech is fluent and appropriate Psychiatric: affect is normal, does not appear anxious or depressed Triage Information Reviewed: Yes Vital Signs On Initial Exam: Temp Pulse Resp BP Pulse Ox 97.7 F 65 18 140/66 97 02/01/19 12:30 02/01/19 12:30 02/01/19 12:30 02/01/19 12:30 02/01/19 12:30 Vital Signs Reviewed: Yes Procedures - Sedation Patient Received Moderate/Deep Sedation with Procedure: No Diagnostics - Laboratory Result Diagrams: 02/01/19 13:41 02/01/19 13:41 Lab Statement: Any lab studies that have been ordered have been reviewed, and results considered in the medical decision making process. - CT Brain CT Interpretation Completed By: Radiologist Summary of CT Findings: No evidence for acute intracranial abnormality. ED Provider has reviewed this report. - EKG 1303 Cardiac Rate: NL - 66 BPM Summary of EKG Findings: NSR at 66 BPM, P waves, QRS complex, and T waves are within normal limits, T waves and intervals are normal, no ischemic changes. This is a normal EKG. ED Physician has reviewed and interpreted this EKG. Course/Dx Course Of Treatment: This patient is a 73 year old female presenting to [facility] with a chief complaint of syncope. Labs were unremarkable except Absolute Monos 0.9 H, Potassium 3.2 L, BUN/Creatinine ratio 26.8, Calcium 8.5 L, AST 10 L , Total Protein 5.[address] L[address] Patient requested Brain [address], which was unremarkable. EKG was unremarkable. A plan for discharge was discussed with the patient and she was agreeable with this plan. - Diagnoses Provider Diagnoses: Syncope Discharge ED - Sign-Out/Discharge Documenting (check all that apply): Patient Departure - Discharge - Discharge Plan Condition: Stable Disposition: HOME Patient Education Materials: Syncope (ED) Referrals: Noah Maldonado MD [Primary Care Provider] - If Needed - Attestation Statements Document Initiated by Scribe: Yes Documenting Scribe: Lopez Cordon Provider For Whom Scribe is Documenting (Include Credential): Wolf Hernández MD Scribe Attestation: Lopez Dubon, scribed for Wolf Hernández MD on 02/01/19 at 1705. Status of Scribe Document: Ready
[2019-02-01] MEDS ORDERED: NS 0.9% 1000 ML** 2,000 ML IV ONE (12:57)
[2019-02-01 14:06] LABS: ABS Eosinophils 0.1 10^3/ul (0-0.6); ABS Lymphocytes 2.1 10^3/ul (1.0-4.8); ABS Monocytes 0.9 10^3/ul (0-0.8); Eosinophil % 1.5 %; Hematocrit 40 % (35-47); Hemoglobin 13.2 g/dL (12.0-16.0); Lymphocyte % 22.5 %; Mean Corpuscular HGB Conc 34 g/dL (31-36); Mean Corpuscular Hemoglobin 30 pg (27-31); Mean Corpuscular Volume 90 fL (80-97); Mean Platelet Volume 7.9 fL (7.4-10.4); Nucleated Red Blood Cells % 0.1; Platelet Count 186 10^3/uL (150-450); Red Blood Count 4.41 10^6 /uL (3.70-4.87); Red Cell Distribution Width 14 % (10-15); White Blood Count 9.1 10^3/uL (3.5-10.8)
[2019-02-01 14:10] LABS: Albumin 3.3 g/dL (3.2-5.2); Albumin/Globulin Ratio 1.3 (1-3); BUN/Creatinine Ratio 26.8 (8-20); Calcium 8.5 mg/dL (8.6-10.3); EGFR African American 98.2 (>60); EGFR Non-African American 81.2 (>60); Globulin 2.5 g/dL (2-4); Magnesium 2.2 mg/dL (1.9-2.7); Potassium 3.2 mmol/L (3.5-5.0); Total Bilirubin 0.8 mg/dL (0.2-1.0); Total Protein 5.8 g/dL (6.4-8.9)
[2019-02-01 14:42] LABS: TSH (Thyroid Stimulating Horm) 0.81 mcIU/mL (0.34-5.60)
[2019-02-01 14:45] LABS: Urine Appearance Clear; Urine Bilirubin Negative (Negative); Urine Blood Negative (Negative); Urine Color Yellow; Urine Glucose Negative (Negative); Urine Ketones Negative (Negative); Urine Nitrite Negative (Negative); Urine Protein Negative (Negative); Urine Specific Gravity 1.009 (1.010-1.030); Urine Urobilinogen Negative (Negative)
[2019-02-01 17:06] VITALS: BP 114/45
== END 2019-02-01 17:04 | disposition home or self-care (01) ==
LOC: ED 12:28
DX: R55 Syncope and collapse (principal); R42 Dizziness and giddiness; Z79.899 Other long term (current) drug therapy; E03.9 Hypothyroidism, unspecified; E78.00 Pure hypercholesterolemia, unspecified; I10 Essential (primary) hypertension; K21.9 Gastro-esophageal reflux disease without esophagitis; Z87.891 Personal history of nicotine dependence; R53.83 Other fatigue
CPT/HCPCS: 36415; 70450; 80053; 81003; 83605; 83735; 84443; 84484; 85025; 93005; 96360; 99283